=== PATIENT | male | born 1945 | race Caucasian/White ===

== ENCOUNTER 2016-11-03 16:42 | Inpatient (IN) | payer MEDICARE, BC ==
--- NOTE | 2016-11-03 17:18 | ED ---
General Adult HPI <Chris Crowell - Last Filed: 11/03/16 19:26> - General Source: patient, RN notes reviewed Mode of arrival: wheelchair Limitations: physical limitation <Jessica Clark - Last Filed: 11/03/16 19:40> - General Chief complaint: Skin/Abscess/Foreign Body Stated complaint: Legs Swollen Time Seen by Provider: 11/03/16 17:00 - History of Present Illness Initial comments: 71-year-old male presents with worsening wound to the right lower extremity. Patient states that he has diabetes and has had an increasing wound to the right lower extremity over the last 2 weeks. Patient states he has chronic numbness to bilateral feet from diabetic peripheral neuropathy. Patient denies any increasing numbness or weakness or tingling. Patient states he has a history of chronic swelling and multiple chronic wounds to the lower extremities. 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 Patient states he is able to ambulate but this is very painful so he crawls on his knees around his house. Patient states he has to crawl back up the stairs in his house and this is how the wound started. Patient states he is on anticoagulants for history of A. fib. Patient denies any recent fever, chills, shortness breath , chest pain, abdominal pain, nausea/vomiting/diarrhea, back pain, hematuria, headache, or visual changes, or any other complaints. (Jessica Clark) - Related Data Home Medications Medication Instructions Recorded Confirmed Furosemide [Lasix] 80 mg PO BID 05/06/14 11/03/16 Metolazone [Zaroxolyn] 2.5 mg PO DAILY 06/10/14 11/03/16 Lovastatin [Mevacor] 10 mg PO HS 05/29/15 11/03/16 Dabigatran Etexilate Mesylate 150 mg PO BID 11/03/16 11/03/16 [Pradaxa] Insulin Aspart [NovoLOG Flexpen] 20 units SQ AC-TID 11/03/16 11/03/16 Lisinopril [Zestril] 20 mg PO DAILY 11/03/16 11/03/16 Allergies Allergy/AdvReac Type Severity Reaction Status Date / Time amoxicillin trihydrate Allergy Itching Verified 11/03/16 17:48 [From Augmentin] potassium clavulanate Allergy Itching Verified 11/03/16 17:48 [From Augmentin] Review of Systems ROS Other: All systems not noted in ROS Statement are negative. <Chris Crowell - Last Filed: 11/03/16 19:26> ROS Other: All systems not noted in ROS Statement are negative. <Jessica Clark - Last Filed: 11/03/16 19:40> ROS Statement: Those systems with pertinent positive or pertinent negative responses have been documented in the HPI. Past Medical History Past Medical History: Atrial Fibrillation, Cancer, Heart Failure, Diabetes Mellitus, Hyperlipidemia, Hypertension, Prostate Disorder Additional Past Medical History / Comment(s): PROSTATE REMOVED- CANCER. WOUND RIGHT FOOT, neuropathy History of Any Multi-Drug Resistant Organisms: MRSA Date of last positivie culture/infection: 04/12/2014 MDRO Source:: Right Foot Past Surgical History: Prostate Surgery Additional Past Surgical History / Comment(s): Electrocardioversion for atrial fibrillation 3 years ago. DEBRIDEMENT RIGHT FOOT Past Anesthesia/Blood Transfusion Reactions: No Reported Reaction Past Psychological History: No Psychological Hx Reported Smoking Status: Former smoker Past Alcohol Use History: Rare Additional Past Alcohol Use History / Comment(s): Patient has history of smoking one and half packs of cigarettes per day for 15 years. He denies any medical marijuana, marijuana or street drug use. Patient states he drinks alcohol rarely. 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 He denies having any pets in the home. He is currently living alone and has moved from [place]. He denies any service Past Drug Use History: None Reported - Past Family History Mother Family Medical History: Coronary Artery Disease (CAD), GI Bleed Additional Family Medical History / Comment(s): AGE 84 FROM HEART PROBLEMS Father Family Medical History: CVA/TIA Additional Family Medical History / Comment(s): FROM MASSIVE STROKE AGE 71 <Jessica Clark - Last Filed: 11/03/16 19:40> General Exam <Chris Crowell - Last Filed: 11/03/16 19:26> Limitations: physical limitation <Jessica Clark - Last Filed: 11/03/16 19:40> - General Exam Comments Initial Comments: General: The patient is awake and alert, in no distress, and does not appear acutely ill. Eye: Pupils are equal, round and reactive to light, extra-ocular movements are intact. No nystagmus. There is normal conjunctiva bilaterally. No signs of icterus. Ears: TMs pink and pearly with intact cone of light bilaterally. Normal external ear canals Nose: Nasal turbinates pink and moist Mouth and throat: There are moist mucous membranes and no oral lesions. Neck: The neck is supple, there is no tenderness or JVD. Cardiovascular: There is a regular rate and rhythm. No murmur, rub or gallop is appreciated. Respiratory: Lungs are clear to auscultation, respirations are non-labored, breath sounds are equal. No wheezes, stridor, rales, or rhonchi Musculoskeletal: There is tenderness to bilateral lower extremities below the knees with increased erythema, swelling and chronic venous stasis dermatitis. Patient has loss of sensation to bilateral feet as far up as bilateral ankles. There is a wound to the medial aspect of the left lower extremity with eschar and weeping. The wound also has a foul odor. Normal ROM. Strength 5/5. Dorsalis pedis pulses are present and equal bilaterally via Doptone. Capillary refill is 3 seconds bilateral lower extremities. Neurological: A&O x 3. CN II-XII intact, There are no obvious motor or sensory deficits. Coordination appears grossly intact. Speech is normal. Skin: There is a wound to the medial aspect of the right lower extremity eschar , surrounding erythema, swelling and foul order. Skin is warm and dry. Psychiatric: Cooperative, appropriate mood & affect, normal judgment. (Jessica Clark) Medical Decision Making - Lab Data Result diagrams: 11/03/16 18:20 11/03/16 18:20 <Chris Crowell - Last Filed: 11/03/16 19:26> - Lab Data Result diagrams: 11/03/16 18:20 11/03/16 18:20 <Jessica Clark - Last Filed: 11/03/16 19:40> - Medical Decision Making Medical decision making I examined the patient has a large three-quarter circumferential infection to the right lower leg. Infected, contaminated with things from the floor as he crawls around. The case discussed with Dr. Watson will be admitted to his service and started on vancomycin. Dr. Crowell (Chris Crowell) This is a 71-year-old male who presents with chronic increasing wound to the right lower extremity 2 weeks. Patient states he has a history of MRSA and diabetic ulcers. On physical exam patient is well-appearing and afebrile the EC. There is tenderness to bilateral lower extremities below the knees with increased erythema, swelling and chronic venous stasis dermatitis. Patient has loss of sensation to bilateral feet as far up as bilateral ankles. There is a wound to the medial aspect of the left lower extremity with eschar and weeping. The wound also has a foul odor. Normal ROM. Strength 5/5. Dorsalis pedis pulses are present and equal bilaterally via Doptone. Capillary refill is 3 seconds bilateral lower extremities. Basic labs were drawn. A UA was done and came back within normal limits. Wound was cultured. Patient was started on IV vancomycin and IV fluids. I discussed this case with attending physician Dr. Crowell who spoke with Dr. Watson. Patient will be admitted as an inpatient to Dr. Watson for IV antibiotics. (Jessica Clark) - Lab Data Lab Results 11/03/16 11/03/16 11/03/16 Range/Units 18:20 18:20 18:20 WBC 5.2 (3.8-10.6) k/uL RBC 4.53 (4.30-5.90) m/uL Hgb 12.1 L (13.0-17.5) gm/dL Hct 37.6 L (39.0-53.0) % MCV 82.9 (80.0-100.0) fL MCH 26.7 (25.0-35.0) pg MCHC 32.2 (31.0-37.0) g/dL RDW 15.6 H (11.5-15.5) % Plt Count 287 (150-450) k/uL Neutrophils % 75 % Lymphocytes % 15 % Monocytes % 5 % Eosinophils % 3 % Basophils % 1 % Neutrophils # 3.9 (1.3-7.7) k/uL Lymphocytes # 0.8 L (1.0-4.8) k/uL Monocytes # 0.3 (0-1.0) k/uL Eosinophils # 0.1 (0-0.7) k/uL Basophils # 0.0 (0-0.2) k/uL Hypochromasia Moderate PT (9.0-12.0) sec INR (<1.1) APTT (22.0-30.0) sec Sodium 137 (137-145) mmol/L Potassium 5.0 (3.5-5.1) mmol/L Chloride 98 (98-107) mmol/L Carbon Dioxide 29 (22-30) mmol/L Anion Gap 10 mmol/L BUN 51 H (9-20) mg/dL Creatinine 1.50 H (0.66-1.25) mg/dL Est GFR (MDRD) Af Amer 56 (>60 ml/min/1.73 sqM) Est GFR (MDRD) Non-Af 46 (>60 ml/min/1.73 sqM) Glucose 202 H (74-99) mg/dL Plasma Lactic Acid Gary 1.0 (0.7-2.0) mmol/L Calcium 9.1 (8.4-10.2) mg/dL Total Bilirubin 0.8 (0.2-1.3) mg/dL AST 29 (17-59) U/L ALT 28 (21-72) U/L Alkaline Phosphatase 71 (38-126) U/L Total Protein 7.1 (6.3-8.2) g/dL Albumin 3.7 (3.5-5.0) g/dL Urine Color Urine Appearance (Clear) Urine pH (5.0-8.0) Ur Specific [place] (1.001-1.035) Urine Protein (Negative) Urine Glucose (UA) (Negative) Urine Ketones (Negative) Urine Blood (Negative) Urine Nitrite (Negative) Urine Bilirubin (Negative) Urine Urobilinogen (<2.0) mg/dL Ur Leukocyte Esterase (Negative) 11/03/16 11/03/16 Range/Units 18:20 18:20 WBC (3.8-10.6) k/uL RBC (4.30-5.90) m/uL Hgb (13.0-17.5) gm/dL Hct (39.0-53.0) % MCV (80.0-100.0) fL MCH (25.0-35.0) pg MCHC (31.0-37.0) g/dL RDW (11.5-15.5) % Plt Count (150-450) k/uL Neutrophils % % Lymphocytes % % Monocytes % % Eosinophils % % Basophils % % Neutrophils # (1.3-7.7) k/uL Lymphocytes # (1.0-4.8) k/uL Monocytes # (0-1.0) k/uL Eosinophils # (0-0.7) k/uL Basophils # (0-0.2) k/uL Hypochromasia PT 13.3 H (9.0-12.0) sec INR 1.4 (<1.1) APTT 35.5 H (22.0-30.0) sec Sodium (137-145) mmol/L Potassium (3.5-5.1) mmol/L Chloride (98-107) mmol/L Carbon Dioxide (22-30) mmol/L Anion Gap mmol/L BUN (9-20) mg/dL Creatinine (0.66-1.25) mg/dL Est GFR (MDRD) Af Amer (>60 ml/min/1.73 sqM) Est GFR (MDRD) Non-Af (>60 ml/min/1.73 sqM) Glucose (74-99) mg/dL Plasma Lactic Acid Gary (0.7-2.0) mmol/L Calcium (8.4-10.2) mg/dL Total Bilirubin (0.2-1.3) mg/dL AST (17-59) U/L ALT (21-72) U/L Alkaline Phosphatase (38-126) U/L Total Protein (6.3-8.2) g/dL Albumin (3.5-5.0) g/dL Urine Color Yellow Urine Appearance Clear (Clear) Urine pH 6.5 (5.0-8.0) Ur Specific [place] 1.011 (1.001-1.035) Urine Protein Negative (Negative) Urine Glucose (UA) Negative (Negative) Urine Ketones Negative (Negative) Urine Blood Negative (Negative) Urine Nitrite Negative (Negative) Urine Bilirubin Negative (Negative) Urine Urobilinogen <2.0 (<2.0) mg/dL Ur Leukocyte Esterase Negative (Negative) Disposition <Chris Crowell - Last Filed: 11/03/16 19:26> Decision Time: 19:37 <Jessica Clark - Last Filed: 11/03/16 19:40> Clinical Impression: Cellulitis Disposition: ADMITTED IP TO THIS [facility] Referrals: Danny Watson MD [Primary Care Provider] - 1-2 days
[2016-11-03] MEDS ORDERED: SODIUM CHLORIDE 0.9% 1,000 ML IV ONE (17:27)
[2016-11-03] MEDS ORDERED: IV VANCOMYCIN PER PHARMACY 1 EACH MISC MISCELLANE PRN (17:28)
[2016-11-03] MEDS ORDERED: VANCOMYCIN 1,000 MG in SODIUM CHLORIDE 0.9% 250 ML IVPB STA (17:28)
[2016-11-03] MEDS ORDERED: VANCOMYCIN 2,500 MG in SODIUM CHLORIDE 0.9% 500 ML IVPB STA (17:41)
[2016-11-03 18:42] LABS: Basophils % (A) 1 %; CH 25.2; CHCM 30.4; Eosinophils # (A) 0.1 k/uL (0-0.7); Eosinophils % (A) 3 %; HCT 37.6 % (39.0-53.0); HGB 12.1 gm/dL (13.0-17.5); Hypochromasia Moderate; Luc % (Auto) 2; Lymphocytes # (A) 0.8 k/uL (1.0-4.8); Lymphocytes % (A) 15 %; MCH 26.7 pg (25.0-35.0); MCHC 32.2 g/dL (31.0-37.0); MCV 82.9 fL (80.0-100.0); Monocytes # (A) 0.3 k/uL (0-1.0); Monocytes % (A) 5 %; Neutrophils # (A) 3.9 k/uL (1.3-7.7); Neutrophils % (A) 75 %; RBC 4.53 m/uL (4.30-5.90); RDW 15.6 % (11.5-15.5); WBC 5.2 k/uL (3.8-10.6); WBC (Perox) 5.12
[2016-11-03 18:43] LABS: Appearance,Urine Clear (Clear); Bilirubin,Urine Negative (Negative); Glucose,Urine (UA) Negative (Negative); Ketones,Urine Negative (Negative); Leukocyte Esterase,Urine Negative (Negative); Nitrite,Urine Negative (Negative); PH, Urine 6.5 (5.0-8.0); Protein,Urine Negative (Negative); Specific Gravity,Urine 1.011 (1.001-1.035); UA Billing (MACRO vs. MICRO) CHEM; Urobilinogen,Urine <2.0 mg/dL (<2.0)
[2016-11-03 18:51] LABS: INR 1.4 (<1.1); Partial Thromboplastin Time 35.5 sec (22.0-30.0); Prothrombin Time 13.3 sec (9.0-12.0)
[2016-11-03 19:01] LABS: Calcium 9.1 mg/dL (8.4-10.2); Total Bilirubin 0.8 mg/dL (0.2-1.3); Total Protein 7.1 g/dL (6.3-8.2)
[2016-11-03] MEDS ORDERED: SODIUM CHLORIDE 0.9% 500 ML IV ONE (19:03)
[2016-11-03] MEDS ORDERED: ACETAMINOPHEN TAB 325 MG TAB PO PRN (19:29)
[2016-11-03] MEDS ORDERED: NALOXONE 0.4 MG/ML 1 ML VIAL IV PRN (19:29)
[2016-11-03] MEDS ORDERED: HYDROmorphone 1 MG/ML 1 ML SYRINGE IV PRN (19:29)
[2016-11-03 20:05] LABS: Hemoglobin A1C 9.7 % (4.2-6.1)
[2016-11-03] MEDS: ATORVASTATIN 10 MG TAB PO SCH (22:01)
[2016-11-03] MEDS: DABIGATRAN 150 MG CAP PO SCH (22:01)
[2016-11-03] MEDS: FUROSEMIDE 80 MG TAB PO SCH (22:01)
[2016-11-03] MEDS: INSULIN LISPRO (humaLOG) 300 UNIT/3 ML VIAL SQ SCH (22:02)
[2016-11-03 22:09] LABS: Glucose,Whole Blood 208 mg/dL (75-99)
[2016-11-04] MEDS: HYDROcodone/APAP 5-325MG 1 EACH TAB PO PRN (00:42)
[2016-11-04 07:09] LABS: Basophils % (A) 1 %; CH 25.2; CHCM 29.8; Eosinophils # (A) 0.1 k/uL (0-0.7); Eosinophils % (A) 3 %; HGB 10.7 gm/dL (13.0-17.5); Hypochromasia Marked; Luc # (Auto) 0.12; Luc % (Auto) 3; Lymphocytes # (A) 0.9 k/uL (1.0-4.8); Lymphocytes % (A) 20 %; MCH 25.9 pg (25.0-35.0); MCHC 30.6 g/dL (31.0-37.0); MCV 84.8 fL (80.0-100.0); Mean Platelet Volume 6.9; Monocytes # (A) 0.3 k/uL (0-1.0); Monocytes % (A) 6 %; Neutrophils % (A) 68 %; RBC 4.13 m/uL (4.30-5.90); RDW 15.7 % (11.5-15.5); WBC 4.4 k/uL (3.8-10.6); WBC (Perox) 4.78
[2016-11-04 07:25] LABS: Glucose,Whole Blood 226 mg/dL (75-99)
[2016-11-04] MEDS: DABIGATRAN 150 MG CAP PO SCH ×2 (07:56→21:14)
[2016-11-04] MEDS: INSULIN LISPRO (humaLOG) 300 UNIT/3 ML VIAL SQ SCH ×6 (07:56→21:14)
[2016-11-04 08:31] LABS: ALT 26 U/L (21-72); AST 22 U/L (17-59); Alkaline Phosphatase 55 U/L (38-126); Anion Gap 10 mmol/L; Blood Urea Nitrogen 49 mg/dL (9-20); Calcium 8.4 mg/dL (8.4-10.2); Carbon Dioxide 26 mmol/L (22-30); Chloride 100 mmol/L (98-107); Glucose 209 mg/dL (74-99); Non-African American GFR(MDRD) 53 (>60 ml/min/1.73 sqM); Sodium 136 mmol/L (137-145); Total Bilirubin 0.7 mg/dL (0.2-1.3); Total Protein 6.4 g/dL (6.3-8.2)
[2016-11-04] MEDS: LISINOPRIL 20 MG TAB PO SCH (10:00)
[2016-11-04] MEDS: FUROSEMIDE 80 MG TAB PO SCH ×2 (10:00→16:38)
[2016-11-04] MEDS: METOLAZONE 2.5 MG TAB PO SCH (10:00)
[2016-11-04] MEDS: CIPROFLOXACIN HCL 250 MG TAB PO SCH ×2 (10:24→21:14)
[2016-11-04] MEDS: VANCOMYCIN 2,000 MG in SODIUM CHLORIDE 0.9% 500 ML IVPB SCH (10:25)
[2016-11-04 11:14] LABS: Glucose,Whole Blood 226 mg/dL (75-99)
[2016-11-04 11:46] VITALS: BMI 41.8
[2016-11-04] MEDS ORDERED: VANCOMYCIN 2,000 MG in SODIUM CHLORIDE 0.9% 500 ML IVPB SCH (12:00)
[2016-11-04 17:17] LABS: Glucose,Whole Blood 81 mg/dL (75-99)
[2016-11-04 20:08] LABS: Glucose,Whole Blood 176 mg/dL (75-99)
[2016-11-04] MEDS: ATORVASTATIN 10 MG TAB PO SCH (21:14)
--- NOTE | 2016-11-04 23:54 | P.CONS ---
History of Present Illness - Reason for Consult Consult date: 11/04/16 - Chief Complaint Lower extremity weakness worsening ulcers - History of Present Illness 71-year-old male who has obesity presents to Hospital with a many week history of increasing difficulties with his lower extremities. He's had increasing ulceration with increasing drainage especially to the right lower extremity. He developed extensive ulceration. He's had difficulty walking around his home and constantly has been crawling around on his hands and knees which is resulted in some injury to his right knee and some callus formation to his right hands from crawling around. He does not give good reasoning as to why he was doing this before seeking care. He relates it is now very serious about receiving care. We'll like to have some improvement. Relates that his shortness of breath is about at baseline. He is denying chest pains or pressures. This note was having great difficulties with ambulation because of pain and difficulty and was crawling around. This may be part of how the wound worsened. States and present for the last several weeks. Review of Systems Constitutional: Denies chills, Denies fever, Denies sweats Eyes: denies blurred vision, denies pain Ears, nose, mouth and throat: Denies dental pain, Denies dysphagia, Denies headache, Denies mouth pain, Denies sore throat Cardiovascular: Reports dyspnea on exertion, Reports shortness of breath, Denies chest pain, Denies syncope Respiratory: Denies cough Gastrointestinal: Denies abdominal pain, Denies diarrhea, Denies nausea, Denies vomiting Genitourinary: Denies dysuria Musculoskeletal: Significant lower extremity pain Integumentary: Reports wounds to the right leg greater than the left with significant lower extremity edema and discomfort Neurological: Chronic bilateral lower extremity neuropathy Denies weakness Psychiatric: Denies anxiety, Denies depression Endocrine: Positive fatigue with weight gain poor control of his diabetes Past Medical History Past Medical History: Atrial Fibrillation, Cancer, Heart Failure, Diabetes Mellitus, Hyperlipidemia, Hypertension, Prostate Disorder Additional Past Medical History / Comment(s): PROSTATE REMOVED- CANCER. WOUND RIGHT FOOT, neuropathy History of Any Multi-Drug Resistant Organisms: MRSA Year Discovered:: 04/12/2014 MDRO Source:: Right Foot Past Surgical History: Prostate Surgery Additional Past Surgical History / Comment(s): Electrocardioversion for atrial fibrillation 3 years ago. DEBRIDEMENT RIGHT FOOT Past Anesthesia/Blood Transfusion Reactions: No Reported Reaction Past Psychological History: No Psychological Hx Reported Additional Psychological History / Comment(s): Patient has history of smoking one and half packs of cigarettes per day for 15 years. He denies any medical marijuana, marijuana or street drug use. Patient states he drinks alcohol rarely. 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 He denies having any pets in the home. He is currently living alone and has moved from [place]. He denies any service Smoking Status: Former smoker Past Alcohol Use History: Rare Additional Past Alcohol Use History / Comment(s): Patient has history of smoking one and half packs of cigarettes per day for 15 years. He denies any medical marijuana, marijuana or street drug use. Patient states he drinks alcohol rarely. 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 He denies having any pets in the home. He is currently living alone and has moved from [place]. He denies any service Past Drug Use History: None Reported - Past Family History Mother Family Medical History: Coronary Artery Disease (CAD), GI Bleed Additional Family Medical History / Comment(s): AGE 84 FROM HEART PROBLEMS Father Family Medical History: CVA/TIA Additional Family Medical History / Comment(s): FROM MASSIVE STROKE AGE 71 Medications and Allergies Home Medications and Allergies Comment(s): Current Medications Acetaminophen (Tylenol Tab) 650 mg PO Q6HR PRN PRN Reason: Mild Pain or Fever > 100.5 Hydrocodone Bitart/Acetaminophen ([employer] 5-325) 1 each PO Q4HR PRN PRN Reason: Moderate Pain Last Admin: 11/04/16 00:42 Dose: 1 each Atorvastatin Calcium (Lipitor) 10 mg PO HS [facility] Last Admin: 11/04/16 21:14 Dose: 10 mg Ciprofloxacin (Cipro) 750 mg PO BID [facility] Last Admin: 11/04/16 21:14 Dose: 750 mg Dabigatran (Pradaxa) 150 mg PO BID [facility] Last Admin: 11/04/16 21:14 Dose: 150 mg Furosemide (Lasix) 80 mg PO 0900,1600 [facility] Last Admin: 11/04/16 16:38 Dose: Not Given Vancomycin HCl 2,000 mg/ (Sodium Chloride) 500 mls @ 167 mls/hr IVPB Q16H [facility] Last Admin: 11/04/16 10:25 Dose: 167 mls/hr Insulin Human Lispro (Humalog) 0 unit SQ ACHS [facility] PRN Reason: Protocol Last Admin: 11/04/16 21:14 Dose: 3 unit Insulin Human Lispro (Humalog) 20 unit SQ AC-TID [facility] Last Admin: 11/04/16 17:21 Dose: Not Given Lisinopril (Zestril) 20 mg PO DAILY [facility] Last Admin: 11/04/16 10:00 Dose: Not Given Metolazone (Zaroxolyn) 2.5 mg PO DAILY [facility] Last Admin: 11/04/16 10:00 Dose: Not Given Naloxone HCl (Narcan) 0.2 mg IV Q2M PRN PRN Reason: Opioid Reversal Silver Sulfadiazine (Silvadene Cream) 1 applic TOPICAL BID [facility] Home Medications Medication Instructions Recorded Confirmed Type Furosemide [Lasix] 80 mg PO BID 05/06/14 11/03/16 History Metolazone [Zaroxolyn] 2.5 mg PO DAILY 06/10/14 11/03/16 History Lovastatin [Mevacor] 10 mg PO HS 05/29/15 11/03/16 History Dabigatran Etexilate Mesylate 150 mg PO BID 11/03/16 11/03/16 History [Pradaxa] Insulin Aspart [NovoLOG Flexpen] 20 units SQ AC-TID 11/03/16 11/03/16 History Lisinopril [Zestril] 20 mg PO DAILY 11/03/16 11/03/16 History Allergies Allergy/AdvReac Type Severity Reaction Status Date / Time amoxicillin trihydrate Allergy Itching Verified 11/03/16 17:48 [From Augmentin] potassium clavulanate Allergy Itching Verified 11/03/16 17:48 [From Augmentin] Physical Exam Vitals: Vital Signs Temp Pulse Pulse Resp BP Pulse Ox 11/04/16 16:21 98.4 F 94 16 99/66 95 11/04/16 16:00 94 105 H 16 11/04/16 08:00 86 105 H 16 11/04/16 07:00 97.6 F 86 16 96/57 98 11/04/16 02:07 118/66 11/04/16 01:21 97.5 F L 105 H 20 96/49 93 L Intake and Output 11/04/16 11/04/16 11/05/16 14:59 22:59 06:59 Intake Total 740 300 Output Total 700 300 Balance 40 0 Intake: IV 500 Sodium Chloride 0.9% 1, 500 000 ml @ 999 mls/hr IV . Q1H1M ONE Rx#:[id number] Oral 240 300 Output: Urine 700 300 Other: Voiding Method Urinal Urinal # Voids 4 3 Weight 136.078 kg Patient Weight 11/05/16 06:59 Weight 136.078 kg 71-year-old male who suffers from superobesity and difficulties recently with his ambulation and ulceration especially to the right leg with drainage HEENT: Anicteric conjunctiva are pink and moist nasal mucosa grossly intact without significant lesions, there is no thrush. Poor dentition Neck: The neck is supple without significant lymphadenopathy or thyromegaly. Lungs: Symmetrical air entry expiratory wheezes few basilar crackles no bronchial sounds Heart: Irregular with a loud S4 There is no significant murmur click or rub, PMI was nondisplaced. Abdomen: Obese, Positive bowel sounds soft and nontender without palpable masses or organomegaly. There was no guarding or rebound. Extremities: The upper extremities reveal no acute lesions. IV site is intact. His extensive bilateral lower extremity edema. Extensive ulceration is seen on the right pretibial area. Approximately 10 x 10 x 0.2cm. Draining a large amount of serous material. Has a smaller lesion in the left pretibial area about 2 x 2 with a depth of 1 cm. There is extensive erythema and tenderness over these areas right greater than left. From crawling he has evidence of significant discoloration callus formation to his right knee more than the left. As well as on the knuckles of the right hand. These areas are not grossly infected at this time. Neuro: Awake alert oriented to person place and time. There are no acute new gross focal sensory motor deficits. Results CBC & Chem 7: 11/04/16 06:49 11/04/16 06:49 Labs: Abnormal Lab Results - Last 24 Hours (Table) 11/04/16 11/04/16 11/04/16 Range/Units 06:49 06:49 07:12 RBC 4.13 L (4.30-5.90) m/uL Hgb 10.7 L (13.0-17.5) gm/dL Hct 35.0 L (39.0-53.0) % MCHC 30.6 L (31.0-37.0) g/dL RDW 15.7 H (11.5-15.5) % Lymphocytes # 0.9 L (1.0-4.8) k/uL Sodium 136 L (137-145) mmol/L BUN 49 H (9-20) mg/dL Creatinine 1.34 H (0.66-1.25) mg/dL Glucose 209 H (74-99) mg/dL POC Glucose (mg/dL) 226 H (75-99) mg/dL Albumin 3.2 L (3.5-5.0) g/dL 11/04/16 11/04/16 Range/Units 11:11 20:07 RBC (4.30-5.90) m/uL Hgb (13.0-17.5) gm/dL Hct (39.0-53.0) % MCHC (31.0-37.0) g/dL RDW (11.5-15.5) % Lymphocytes # (1.0-4.8) k/uL Sodium (137-145) mmol/L BUN (9-20) mg/dL Creatinine (0.66-1.25) mg/dL Glucose (74-99) mg/dL POC Glucose (mg/dL) 226 H 176 H (75-99) mg/dL Albumin (3.5-5.0) g/dL Laboratory Results WBC 4.4 k/uL (3.8-10.6) 11/04/16 06:49 RBC 4.13 m/uL (4.30-5.90) L 11/04/16 06:49 Hgb 10.7 gm/dL (13.0-17.5) L 11/04/16 06:49 Hct 35.0 % (39.0-53.0) L 11/04/16 06:49 MCV 84.8 fL (80.0-100.0) 11/04/16 06:49 MCH 25.9 pg (25.0-35.0) 11/04/16 06:49 MCHC 30.6 g/dL (31.0-37.0) L 11/04/16 06:49 RDW 15.7 % (11.5-15.5) H 11/04/16 06:49 Plt Count 246 k/uL (150-450) 11/04/16 06:49 Neutrophils % 68 % 11/04/16 06:49 Lymphocytes % 20 % 11/04/16 06:49 Monocytes % 6 % 11/04/16 06:49 Eosinophils % 3 % 11/04/16 06:49 Basophils % 1 % 11/04/16 06:49 Neutrophils # 3.0 k/uL (1.3-7.7) 11/04/16 06:49 Lymphocytes # 0.9 k/uL (1.0-4.8) L 11/04/16 06:49 Monocytes # 0.3 k/uL (0-1.0) 11/04/16 06:49 Eosinophils # 0.1 k/uL (0-0.7) 11/04/16 06:49 Basophils # 0.0 k/uL (0-0.2) 11/04/16 06:49 Hypochromasia Marked 11/04/16 06:49 PT 13.3 sec (9.0-12.0) H 11/03/16 18:20 INR 1.4 (<1.1) 11/03/16 18:20 APTT 35.5 sec (22.0-30.0) H 11/03/16 18:20 Sodium 136 mmol/L (137-145) L 11/04/16 06:49 Potassium 5.0 mmol/L (3.5-5.1) 11/04/16 06:49 Chloride 100 mmol/L (98-107) 11/04/16 06:49 Carbon Dioxide 26 mmol/L (22-30) 11/04/16 06:49 Anion Gap 10 mmol/L 11/04/16 06:49 BUN 49 mg/dL (9-20) H 11/04/16 06:49 Creatinine 1.34 mg/dL (0.66-1.25) H 11/04/16 06:49 Est GFR (MDRD) Af Amer >60 (>60 ml/min/1.73 sqM) 11/04/16 06:49 Est GFR (MDRD) Non-Af 53 (>60 ml/min/1.73 sqM) 11/04/16 06:49 Glucose 209 mg/dL (74-99) H 11/04/16 06:49 POC Glucose (mg/dL) 176 mg/dL (75-99) H 11/04/16 20:07 POC Glu Self Pay Specialist ID Karen Castellano 11/04/16 20:[address] Glu mg/dL 232 mg/dL 11/03/16 18:20 Hemoglobin A1c 9.7 % (4.2-6.1) H 11/03/16 18:20 Plasma Lactic Acid Gary 1.0 mmol/L (0.7-2.0) 11/03/16 18:20 Calcium 8.4 mg/dL (8.4-10.2) 11/04/16 06:49 Total Bilirubin 0.7 mg/dL (0.2-1.3) 11/04/16 06:49 AST 22 U/L (17-59) 11/04/16 06:49 ALT 26 U/L (21-72) 11/04/16 06:49 Alkaline Phosphatase 55 U/L (38-126) 11/04/16 06:49 Total Protein 6.4 g/dL (6.3-8.2) 11/04/16 06:49 Albumin 3.2 g/dL (3.5-5.0) L 11/04/16 06:49 Urine Color Yellow 11/03/16 18:20 Urine Appearance Clear (Clear) 11/03/16 18:20 Urine pH 6.5 (5.0-8.0) 11/03/16 18:20 Ur Specific [place] 1.011 (1.001-1.035) 11/03/16 18:20 Urine Protein Negative (Negative) 11/03/16 18:20 Urine Glucose (UA) Negative (Negative) 11/03/16 18:20 Urine Ketones Negative (Negative) 11/03/16 18:20 Urine Blood Negative (Negative) 11/03/16 18:20 Urine Nitrite Negative (Negative) 11/03/16 18:20 Urine Bilirubin Negative (Negative) 11/03/16 18:20 Urine Urobilinogen <2.0 mg/dL (<2.0) 11/03/16 18:20 Ur Leukocyte Esterase Negative (Negative) 11/03/16 18:20 Microbiology 11/03/16 18:20 Blood Blood Culture - Preliminary No Growth after 24 hours 11/03/16 18:20 Leg - Right Gram Stain - Preliminary 11/03/16 18:20 Leg - Right Wound Culture - Preliminary Gram Neg Bacilli 11/03/16 18:20 Urine,Voided Urine Culture - Final Comments: Arterial studies and 2015 were normal Assessment and Plan (1) Bilateral lower leg cellulitis Narrative/Plan: 71-year-old male presents to Hospital with evidence of worsening lower extremity edema and ulcerations over the last few weeks. He had to crawl around his legs are doing so poorly. His extensive edema, erythema as well as open ulcerations of the bilateral lower extremities. There is copious drainage. Will utilize adult briefs wrapped around the leg and some Benny wrap to keep it in place until the drainage improves. Cultures are process. With his ALLERGY to amoxicillin will utilize meropenem for now until we have further data. He does not have recent history of MRSA. Local wound care with some Silvadene and wraps will be utilized. Elevation of legs at rest. Likely will need a course of IV antibiotic therapy at discharge, lasting needed to go to extended care for rehab and antibiotic therapy. Baseline laboratories Enhance glucose control Status: Acute (2) Diabetic ulcer of lower leg associated with diabetes mellitus due to underlying condition, with fat layer exposed Status: Acute (3) Poorly controlled type 2 diabetes mellitus with complication Status: Acute
[2016-11-05] MEDS: MEROPENEM 1 GM in SODIUM CHLORIDE 0.9% 100 ML IVPB SCH ×3 (00:24→15:18)
[2016-11-05] MEDS: VANCOMYCIN 2,000 MG in SODIUM CHLORIDE 0.9% 500 ML IVPB SCH ×2 (02:59→18:03)
[2016-11-05] MEDS: HYDROcodone/APAP 5-325MG 1 EACH TAB PO PRN ×2 (03:04→09:01)
[2016-11-05 07:22] LABS: Glucose,Whole Blood 138 mg/dL (75-99)
[2016-11-05 07:45] LABS: CH 25.4; CHCM 29.9; HCT 35.2 % (39.0-53.0); HDW 2.81; HGB 11.2 gm/dL (13.0-17.5); Hypochromasia Marked; MCHC 31.8 g/dL (31.0-37.0); MCV 84.8 fL (80.0-100.0); Mean Platelet Volume 7.1; RBC 4.15 m/uL (4.30-5.90); RDW 15.5 % (11.5-15.5); WBC 4.2 k/uL (3.8-10.6)
[2016-11-05] MEDS: DABIGATRAN 150 MG CAP PO SCH ×2 (08:02→22:11)
[2016-11-05] MEDS: INSULIN LISPRO (humaLOG) 300 UNIT/3 ML VIAL SQ SCH ×7 (08:02→22:14)
[2016-11-05] MEDS: FUROSEMIDE 80 MG TAB PO SCH ×2 (08:04→15:18)
[2016-11-05] MEDS: LISINOPRIL 20 MG TAB PO SCH (08:04)
[2016-11-05] MEDS: METOLAZONE 2.5 MG TAB PO SCH (08:05)
[2016-11-05 08:16] LABS: Calcium 8.6 mg/dL (8.4-10.2); Potassium 4.7 mmol/L (3.5-5.1)
[2016-11-05] MEDS: SILVER sulfADIAZINE Cream 400 GM 1 APPLIC APPLIC TOPICAL SCH ×2 (09:00→22:14)
[2016-11-05 10:20] LABS: C Reactive Protein 24.3 mg/L (<10.0)
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
--- NOTE | 2016-11-05 11:32 | HP ---
Addendum/continuation of H&P after being disconnected. DATE OF ADMISSION: 11/03/2016 PAST MEDICAL HISTORY: Also significant for venostasis ulcerations of the lower leg. PAST SURGICAL HISTORY: Significant for debridement and has had some previous prostate surgery, probably TURP. PERSONAL HISTORY: Nonsmoker at present, used to smoke in the past. Alcohol none. Patient used to smoke 1 to 1-1/2 packs per day for over 15 years. No other drug use. SOCIAL HISTORY: The patient is , lives alone. FAMILY MEDICAL HISTORY: Mother had a history of coronary artery disease and ASHD. She also had a history of GI bleeding. Father at age 71, he had history of CVA. The patient has 2 sons. REVIEW OF SYSTEMS: NEURO: Denies any headaches, dizziness. No double vision, blurred vision. No symptoms of TIA, syncope, seizures. PSYCH: No anxiety. Denies depression. CARDIAC: Denies chest pain, angina, palpitations. RESPIRATORY: Mild chronic shortness of breath and chronic cough. No hemoptysis. GI: No nausea or vomiting. Appetite good. No abdominal pain. Does have some loose stools off and on. Generally has urgency to defecate. : No symptoms of dysuria, hematuria. Does have some frequency. EXTREMITIES: Present complains of swelling and ulcerations right leg. Denies any fever or chills. Some pain associated with ulcerations. CONSTITUTIONAL: No fever or chills. HEMATOLOGIC: No anemia or bleeding disorder. ENDOCRINE: History of diabetes mellitus. SKIN: Ulcers as mentioned above. PHYSICAL EXAMINATION: A 71-year-old gentleman who appears his stated age. He appears poorly kempt. Vital signs reveal temperature 98.1, pulse 88, respirations 20, blood pressure 132/78, pulse ox 99% on room air at the time of admission. At the time of evaluation temperature is 97.6, pulse 86, respirations 16, blood pressure 96/57, pulse ox 98% on room air. HEENT: Normocephalic. Pupils reactive. Nostrils clear. Oral cavity moist. NECK: Difficult to assess, patient has a wilhelm and short neck. No thyromegaly palpable. No obvious carotid bruits. Difficult to assess for JVD. CHEST EXAMINATION: Generalized decreased air flow. Percussion noted bilateral symmetrical. CARDIAC: Distant heart sounds. S1, S2 with no gallops. Rhythm appears to be irregularly irregular. ABDOMEN: Distended, protuberant, nontender. Bowel sounds are active. EXTREMITIES: Reveal 2 to 3+ edema, some places pitting, other places chronic. The patient has a large area of denuded skin and some scabbed skin in the right lower leg about 2 to 3 inches above the ankle. The patient has some necrotic appearing tissue and some exposure to the fatty tissue. There is significant amount of drainage with some foul odor. EXTREMITIES: Feet, pedal pulses are palpable but diminished. The patient has edema of the feet bilateral. No ulcerations on the bottom of the feet. The patient does move both upper and lower extremities well. He does have some scabbed areas at both knees where he has been crawling. NEUROLOGIC: Awake, alert, oriented x3, with well-coordinated movements in both upper extremities. LABORATORY ASSESSMENT: White count 5200. Hemoglobin 12.1. INR 1.4. Electrolytes normal. BUN 51, creatinine 1.5. Glucose was 202. Hemoglobin A1c 9.7. Urinalysis unremarkable. ASSESSMENT: 1. Cellulitis right lower leg. 2. Venostasis ulceration. 3. Diabetes mellitus. 4. Generalized weakness. 5. Chronic kidney disease stage III. 6. Chronic atrial fibrillation. 7. Poor compliance to medications and diet. 8. Obesity. 9. Obstructive sleep apnea. 10. Chronic obstructive pulmonary disease. PLAN: Will start local wound application of Silvadene cream. The patient has been placed on vancomycin with previous history of MRSA and also added Cipro. Antibiotics to be continued until ID sees the patient and see what they recommend. Patient will be continued with diuretics. Patient's general condition remains guarded. Prognosis is guarded. Patient is probably going to require continuous wound care and may require to be placed in rehab. [facility], patient's prognosis remains poor due to his poor compliance to medical care. Patient's condition discussed with the patient.
[2016-11-05 12:10] LABS: Glucose,Whole Blood 79 mg/dL (75-99)
[2016-11-05] MEDS ORDERED: VANCOMYCIN TROUGH DUE 1 EACH MISC MISCELLANE ONE (17:00)
[2016-11-05 17:16] LABS: Glucose,Whole Blood 122 mg/dL (75-99)
[2016-11-05 20:05] LABS: Glucose,Whole Blood 117 mg/dL (75-99)
[2016-11-05] MEDS: ATORVASTATIN 10 MG TAB PO SCH (22:11)
--- NOTE | 2016-11-05 22:35 | P.PN ---
Subjective Principal diagnosis: Diabetic ulcers and cellulitis to both legs 71-year-old male who has obesity presents to Hospital with a many week history of increasing difficulties with his lower extremities. He's had increasing ulceration with increasing drainage especially to the right lower extremity. He developed extensive ulceration. He's had difficulty walking around his home and constantly has been crawling around on his hands and knees which is resulted in some injury to his right knee and some callus formation to his right hands from crawling around. He does not give good reasoning as to why he was doing this before seeking care. He relates it is now very serious about receiving care. We'll like to have some improvement. Relates that his shortness of breath is about at baseline. He is denying chest pains or pressures. This note was having great difficulties with ambulation because of pain and difficulty and was crawling around. This may be part of how the wound worsened. States and present for the last several weeks. Feeling just slightly better today Objective - Vital Signs Vital signs: Vital Signs Temp 98.7 F 11/05/16 17:07 Pulse 94 11/05/16 17:07 Resp 15 11/05/16 17:07 BP 99/54 11/05/16 17:07 Pulse Ox 95 11/05/16 17:07 Intake & Output 11/05/16 11/05/16 11/06/16 06:59 18:59 06:59 Intake Total 900 580 Output Total 1300 Balance 900 -720 Weight 136.078 kg Intake: Intake, IV Titration 600 100 Amount Meropenem 1 gm In Sodium 100 Chloride 0.9% 100 ml @ 100 mls/hr IVPB Q12HR [facility] Rx#:[id number] Meropenem 1 gm In Sodium 100 Chloride 0.9% 100 ml @ 100 mls/hr IVPB Q8HR [facility] Rx#:[id number] Vancomycin 2,000 mg In 500 Sodium Chloride 0.9% 500 ml @ 167 mls/hr IVPB Q16H [facility] Rx#:[id number] Oral 300 480 Output: Urine 1300 Other: Voiding Method Urinal Urinal # Voids 3 1 # Bowel Movements 1 - Exam 71-year-old male who suffers from superobesity and difficulties recently with his ambulation and ulceration especially to the right leg with drainage HEENT: Anicteric conjunctiva are pink and moist nasal mucosa grossly intact without significant lesions, there is no thrush. Poor dentition Neck: The neck is supple without significant lymphadenopathy or thyromegaly. Lungs: Symmetrical air entry expiratory wheezes few basilar crackles no bronchial sounds Heart: Irregular with a loud S4 There is no significant murmur click or rub, PMI was nondisplaced. Abdomen: Obese, Positive bowel sounds soft and nontender without palpable masses or organomegaly. There was no guarding or rebound. Extremities: The upper extremities reveal no acute lesions. IV site is intact. His extensive bilateral lower extremity edema. Extensive ulceration is seen on the right pretibial area. Approximately 10 x 10 x 0.2cm. Draining a large amount of serous material. Has a smaller lesion in the left pretibial area about 2 x 2 with a depth of 1 cm. There is extensive erythema and tenderness over these areas right greater than left. From crawling he has evidence of significant discoloration callus formation to his right knee more than the left. As well as on the knuckles of the right hand. These areas are not grossly infected at this time. Neuro: Awake alert oriented to person place and time. There are no acute new gross focal sensory motor deficits. - Labs CBC & Chem 7: 11/05/16 07:19 11/05/16 07:19 Labs: Abnormal Lab Results - Last 24 Hours (Table) 11/05/16 11/05/16 11/05/16 Range/Units 07:18 07:19 07:19 RBC 4.15 L (4.30-5.90) m/uL Hgb 11.2 L (13.0-17.5) gm/dL Hct 35.2 L (39.0-53.0) % ESR (0-15) mm/hr BUN 45 H (9-20) mg/dL Creatinine 1.44 H (0.66-1.25) mg/dL Glucose 140 H (74-99) mg/dL POC Glucose (mg/dL) 138 H (75-99) mg/dL C-Reactive Protein 24.3 H (<10.0) mg/L Prealbumin 14 L (18-36) mg/dL 11/05/16 11/05/16 11/05/16 Range/Units 07:19 17:01 20:00 RBC (4.30-5.90) m/uL Hgb (13.0-17.5) gm/dL Hct (39.0-53.0) % ESR 25 H (0-15) mm/hr BUN (9-20) mg/dL Creatinine (0.66-1.25) mg/dL Glucose (74-99) mg/dL POC Glucose (mg/dL) 122 H 117 H (75-99) mg/dL C-Reactive Protein (<10.0) mg/L Prealbumin (18-36) mg/dL Laboratory Results WBC 4.2 k/uL (3.8-10.6) 11/05/16 07:19 RBC 4.15 m/uL (4.30-5.90) L 11/05/16 07:19 Hgb 11.2 gm/dL (13.0-17.5) L 11/05/16 07:19 Hct 35.2 % (39.0-53.0) L 11/05/16 07:19 MCV 84.8 fL (80.0-100.0) 11/05/16 07:19 MCH 27.0 pg (25.0-35.0) 11/05/16 07:19 MCHC 31.8 g/dL (31.0-37.0) 11/05/16 07:19 RDW 15.5 % (11.5-15.5) 11/05/16 07:19 Plt Count 218 k/uL (150-450) 11/05/16 07:19 Neutrophils % 68 % 11/04/16 06:49 Lymphocytes % 20 % 11/04/16 06:49 Monocytes % 6 % 11/04/16 06:49 Eosinophils % 3 % 11/04/16 06:49 Basophils % 1 % 11/04/16 06:49 Neutrophils # 3.0 k/uL (1.3-7.7) 11/04/16 06:49 Lymphocytes # 0.9 k/uL (1.0-4.8) L 11/04/16 06:49 Monocytes # 0.3 k/uL (0-1.0) 11/04/16 06:49 Eosinophils # 0.1 k/uL (0-0.7) 11/04/16 06:49 Basophils # 0.0 k/uL (0-0.2) 11/04/16 06:49 Hypochromasia Marked 11/05/16 07:19 ESR 25 mm/hr (0-15) H 11/05/16 07:19 PT 13.3 sec (9.0-12.0) H 11/03/16 18:20 INR 1.4 (<1.1) 11/03/16 18:20 APTT 35.5 sec (22.0-30.0) H 11/03/16 18:20 Sodium 137 mmol/L (137-145) 11/05/16 07:19 Potassium 4.7 mmol/L (3.5-5.1) 11/05/16 07:19 Chloride 101 mmol/L (98-107) 11/05/16 07:19 Carbon Dioxide 27 mmol/L (22-30) 11/05/16 07:19 Anion Gap 9 mmol/L 11/05/16 07:19 BUN 45 mg/dL (9-20) H 11/05/16 07:19 Creatinine 1.44 mg/dL (0.66-1.25) H 11/05/16 07:19 Est GFR (MDRD) Af Amer 59 (>60 ml/min/1.73 sqM) 11/05/16 07:19 Est GFR (MDRD) Non-Af 49 (>60 ml/min/1.73 sqM) 11/05/16 07:19 Glucose 140 mg/dL (74-99) H 11/05/16 07:19 POC Glucose (mg/dL) 117 mg/dL (75-99) H 11/05/16 20:00 POC Glu [employer] KHANH Karen Castellano 11/05/16 20:[address] Glu mg/dL 232 mg/dL 11/03/16 18:20 Hemoglobin A1c 9.7 % (4.2-6.1) H 11/03/16 18:20 Plasma Lactic Acid Gary 1.0 mmol/L (0.7-2.0) 11/03/16 18:20 Calcium 8.6 mg/dL (8.4-10.2) 11/05/16 07:19 Total Bilirubin 0.7 mg/dL (0.2-1.3) 11/04/16 06:49 AST 22 U/L (17-59) 11/04/16 06:49 ALT 26 U/L (21-72) 11/04/16 06:49 Alkaline Phosphatase 55 U/L (38-126) 11/04/16 06:49 C-Reactive Protein 24.3 mg/L (<10.0) H 11/05/16 07:19 Total Protein 6.4 g/dL (6.3-8.2) 11/04/16 06:49 Albumin 3.2 g/dL (3.5-5.0) L 11/04/16 06:49 Prealbumin 14 mg/dL (18-36) L 11/05/16 07:19 Urine Color Yellow 11/03/16 18:20 Urine Appearance Clear (Clear) 11/03/16 18:20 Urine pH 6.5 (5.0-8.0) 11/03/16 18:20 Ur Specific Hunker 1.011 (1.001-1.035) 11/03/16 18:20 Urine Protein Negative (Negative) 11/03/16 18:20 Urine Glucose (UA) Negative (Negative) 11/03/16 18:20 Urine Ketones Negative (Negative) 11/03/16 18:20 Urine Blood Negative (Negative) 11/03/16 18:20 Urine Nitrite Negative (Negative) 11/03/16 18:20 Urine Bilirubin Negative (Negative) 11/03/16 18:20 Urine Urobilinogen <2.0 mg/dL (<2.0) 11/03/16 18:20 Ur Leukocyte Esterase Negative (Negative) 11/03/16 18:20 Vancomycin Trough 25.3 ug/mL 11/05/16 17:37 Microbiology 11/03/16 18:20 Blood Blood Culture Gram Stain - Preliminary 11/03/16 18:20 Blood Blood Culture - Preliminary 11/03/16 18:20 Leg - Right Gram Stain - Preliminary 11/03/16 18:20 Leg - Right Wound Culture - Preliminary Gram Neg Bacilli 11/03/16 18:20 Urine,Voided Urine Culture - Final Assessment and Plan (1) Bilateral lower leg cellulitis Narrative/Plan: 71-year-old male presents to Hospital with evidence of worsening lower extremity edema and ulcerations over the last few weeks. He had to crawl around his legs are doing so poorly. His extensive edema, erythema as well as open ulcerations of the bilateral lower extremities. There is copious drainage. Will utilize adult briefs wrapped around the leg and some Benny wrap to keep it in place until the drainage improves. Cultures are process. With his ALLERGY to amoxicillin will utilize meropenem for now until we have further data. Continue Vancomycin while blood culture is in process Local wound care with some Silvadene and wraps will be utilized. Elevation of legs at rest. Likely will need a course of IV antibiotic therapy at discharge, lasting needed to go to extended care for rehab and antibiotic therapy. Baseline laboratories Enhance glucose control Status: Acute (2) Diabetic ulcer of lower leg associated with diabetes mellitus due to underlying condition, with fat layer exposed Status: Acute (3) Poorly controlled type 2 diabetes mellitus with complication Status: Acute
--- NOTE | 2016-11-05 22:57 | PN ---
CHIEF COMPLAINT: Re-evaluation. HISTORY OF PRESENT ILLNESS: A 71-year-old was admitted to the hospital yesterday with a profusely weeping right lower leg with evidence of cellulitis and denudement of the dermis of the skin. The patient had significant ulcerations. There is also some scabbed area. He has chronic venostasis. The patient has significant pulmonary hypertension, history of obstructive sleep apnea, COPD, diabetes mellitus and hypertension. The patient has been seen by Infectious Disease for the cellulitis and ulcerations of the right lower leg. Dr. Arguello has prescribed wound care as well as antibiotics, which include meropenem and vancomycin. The patient is actually feeling better today. He did have blood sugar in the 70s with some hypoglycemic symptoms. The patient's insulin dosage will be dropped down to 10 units before meals, as he is on a restricted diet now. The patient's condition is reviewed with the patient. REVIEW OF SYSTEMS: NEURO: Denies any headaches, dizziness. PSYCH: No anxiety. CARDIAC: No chest pain, angina, palpitation. RESPIRATORY: Denies shortness of breath. Does have some cough. No hemoptysis. GI: No nausea, vomiting, abdominal pain, diarrhea. No bowel movement. : No symptoms of dysuria, hematuria. EXTREMITIES: Edema and drainage from the right lower leg. CONSTITUTIONAL: No fever or chills. PHYSICAL EXAMINATION: Pleasant 71-year-old who appears stated age. Vital signs reveal temperature is 98, pulse of 92, respirations 16, blood pressure 105/63, pulse ox 95% on room air. HEENT: Normocephalic. NECK: Difficult to assess for JVD. Chest is clear to auscultation with generalized decreased air flow. CARDIAC: Distant heart sounds. S1, S2 with no gallops. Irregular rhythm. Systolic murmur 2/6 left sternal border. ABDOMEN: Protuberant, soft. Bowel sounds are active. Extremities reveal 1 to 2+ edema. Right lower leg wound not inspected today. The patient has Silvadene dressings on it. Does have pedal pulses palpable. Neurologically awake, alert, oriented with well-coordinated movements. LABORATORY ASSESSMENT: Hemoglobin of 11.2, white count 4.2, platelets 218. BUN 45, creatinine 1.44. Electrolytes were normal. C-reactive protein 25, ( ) 24.3 and pre-albumin was 14. ASSESSMENT: 1. Cellulitis, right lower leg. 2. Venostasis ulcerations, right lower leg. 3. Chronic kidney disease stage 3. 4. Chronic obstructive pulmonary disease. 5. Pulmonary hypertension. 6. Chronic atrial fibrillation. 7. Anticoagulated state. 8. Hypertension. 9. Diabetes mellitus. PLAN: The patient is continued on present antibiotics. I have reduced insulin dosing. The patient has received previous instructions for diet and diabetes mellitus; however, he continues to be doing poorly regarding that. The patient's blood sugars are decreased and patient's insulin has been adjusted. Continue present antibiotics. The plan is for the patient to be placed in a nursing facility for further care.
[2016-11-06] MEDS: MEROPENEM 1 GM in SODIUM CHLORIDE 0.9% 100 ML IVPB SCH ×3 (00:28→17:54)
[2016-11-06] MEDS: HYDROcodone/APAP 5-325MG 1 EACH TAB PO PRN ×2 (04:33→15:23)
[2016-11-06 07:30] LABS: Glucose,Whole Blood 140 mg/dL (75-99)
[2016-11-06] MEDS: INSULIN LISPRO (humaLOG) 300 UNIT/3 ML VIAL SQ SCH ×8 (07:45→22:16)
[2016-11-06] MEDS: FUROSEMIDE 80 MG TAB PO SCH ×2 (07:47→17:54)
[2016-11-06] MEDS: DABIGATRAN 150 MG CAP PO SCH ×2 (07:47→22:13)
[2016-11-06] MEDS: LISINOPRIL 20 MG TAB PO SCH (07:47)
[2016-11-06] MEDS: METOLAZONE 2.5 MG TAB PO SCH (07:48)
[2016-11-06 07:55] LABS: Calcium 9.6 mg/dL (8.4-10.2); Potassium 5.1 mmol/L (3.5-5.1)
[2016-11-06 11:52] LABS: Glucose,Whole Blood 150 mg/dL (75-99)
--- NOTE | 2016-11-06 14:13 | P.PN ---
Subjective Principal diagnosis: Cellulitis and chronic venous stasis with ulceration History present is: This 71-year-old gentleman was admitted to the hospital with ulcerations right lower leg associated with significant chronic venous stasis. The ulcers started with some superficial trauma. The patient is a fairly large ulceration with the possible dermis and significant drainage. The patient has no associated fever chills and denies any pain at the site of ulcers. The patient has been weak in his been crawling on his knees at home. He does have underlying history of pulmonary hypertension, COPD, sleep apnea. Patient does not use his sleep apnea apparatus. He also has a history of diabetes mellitus. Blood sugars are better controlled with the regimented diet here patient A1c at admission is 9.4. Patient has no fever chills. He did have a bowel movement with no diarrhea REVIEW OF SYSTEMS: Neuro: Denies any headaches dizziness. Psych: Denies anxiety depression feels oriented. Cardiac: Denies chest pain and angina palpitations. Respiratory: Denies shortness of breath cough. GI: Denies nausea vomiting or abdominal pain. No diarrhea or constipation, bowel movement normal.. : Denies dysuria hematuria. Extremities: Denies pain. Chronic edema lower legs. Patient has bilateral lower leg dressings and Benny wraps.. Skin: Ulcer right lower leg, abrasions both knees. Constitutional: No fever, chills. Objective - Vital Signs Vital signs: Vital Signs Temp 97.9 F 11/06/16 07:00 Pulse 106 H 11/06/16 07:00 Resp 17 11/06/16 07:00 BP 110/67 11/06/16 07:00 Pulse Ox 97 11/06/16 07:00 Intake & Output 11/05/16 11/06/16 11/06/16 18:59 06:59 18:59 Intake Total 580 0 Output Total 1300 19968 200 Balance -720 -38335 -200 Weight 136.078 kg 136.078 kg Intake: Intake, IV Titration 100 Amount Meropenem 1 gm In Sodium 100 Chloride 0.9% 100 ml @ 100 mls/hr IVPB Q8HR [facility] Rx#:[id number] Oral 480 0 Output: Urine 1300 47898 200 Other: Voiding Method Urinal Urinal # Voids 1 1 1 # Bowel Movements 1 1 PHYSICAL EXAMINATION: Cooperative, at present in no acute distress. HEENT: Neck supple Chest: Clear to auscultation with generalized decreased airflow Cardiac: Normal S1-S2 no gallops systolic murmur 2/6 left sternal border, irregular rhythm. Rate controlled. Abdomen: Soft but protuberant, nontender bowel sounds present. Extremities: Edema both lower extremities . Skin ulcer not examined Neurologically: Awake, alert, oriented with well-coordinated movements. - Labs CBC & Chem 7: 11/05/16 07:19 11/06/16 06:37 Labs: Abnormal Lab Results - Last 24 Hours (Table) 11/05/16 11/05/16 11/06/16 Range/Units 17:01 20:00 06:37 BUN 51 H (9-20) mg/dL Creatinine 1.55 H (0.66-1.25) mg/dL Glucose 149 H (74-99) mg/dL POC Glucose (mg/dL) 122 H 117 H (75-99) mg/dL 11/06/16 11/06/16 Range/Units 07:23 11:47 BUN (9-20) mg/dL Creatinine (0.66-1.25) mg/dL Glucose (74-99) mg/dL POC Glucose (mg/dL) 140 H 150 H (75-99) mg/dL Assessment and Plan Plan: ASSESSMENT: 1. Cellulitis right lower leg. 2. Chronic venous stasis with ulceration right lower leg. 3. Diabetes mellitus poorly controlled with complications. 4. Pulmonary hypertension. 5. COPD. 6. Chronic kidney disease stage III. 7. Peripheral neuropathy secondary to diabetes. 8. Paroxysmal atrial fibrillation 9. Poor compliance data and treatment 10. Obstructive sleep apnea with declined use of CPAP. PLAN: Continue present medical regimen patient's condition discussed with patient and sister. Prognosis remains guarded. Patient educated regarding need for better diabetic control as well as general health improvement as he is at risk of losing his lower limbs patient condition and plan of care reviewed with patient probable transfer to nursing facility for rehab and continuation of IV antibiotics.].
[2016-11-06 16:58] LABS: Glucose,Whole Blood 356 mg/dL (75-99)
[2016-11-06] MEDS: SILVER sulfADIAZINE Cream 400 GM 1 APPLIC APPLIC TOPICAL SCH (17:54)
--- NOTE | 2016-11-06 18:28 | P.PN ---
Subjective Principal diagnosis: Diabetic ulcers and cellulitis to both legs 71-year-old male who has obesity presents to Hospital with a many week history of increasing difficulties with his lower extremities. He's had increasing ulceration with increasing drainage especially to the right lower extremity. He developed extensive ulceration. He's had difficulty walking around his home and constantly has been crawling around on his hands and knees which is resulted in some injury to his right knee and some callus formation to his right hands from crawling around. He does not give good reasoning as to why he was doing this before seeking care. He relates it is now very serious about receiving care. We'll like to have some improvement. Relates that his shortness of breath is about at baseline. He is denying chest pains or pressures. This note was having great difficulties with ambulation because of pain and difficulty and was crawling around. This may be part of how the wound worsened. States and present for the last several weeks. Feeling just slightly better today Objective - Vital Signs Vital signs: Vital Signs Temp 97.2 F L 11/06/16 14:58 Pulse 100 11/06/16 14:58 Resp 16 11/06/16 14:58 BP 105/68 11/06/16 14:58 Pulse Ox 96 11/06/16 14:58 Intake & Output 11/05/16 11/06/16 11/06/16 18:59 06:59 18:59 Intake Total 580 0 480 Output Total 1300 80870 1025 Balance -990 -53603 -545 Weight 136.078 kg 136.078 kg Intake: Intake, IV Titration 100 Amount Meropenem 1 gm In Sodium 100 Chloride 0.9% 100 ml @ 100 mls/hr IVPB Q8HR [facility] [place] Rx#:[id number] Oral 480 0 480 Output: Urine 1300 [id number] 1025 Other: Voiding Method Urinal Urinal # Voids 1 1 1 # Bowel Movements 1 1 - Exam 71-year-old male who suffers from superobesity and difficulties recently with his ambulation and ulceration especially to the right leg with drainage HEENT: Anicteric conjunctiva are pink and moist nasal mucosa grossly intact without significant lesions, there is no thrush. Poor dentition Neck: The neck is supple without significant lymphadenopathy or thyromegaly. Lungs: Symmetrical air entry expiratory wheezes few basilar crackles no bronchial sounds Heart: Irregular with a loud S4 There is no significant murmur click or rub, PMI was nondisplaced. Abdomen: Obese, Positive bowel sounds soft and nontender without palpable masses or organomegaly. There was no guarding or rebound. Extremities: The upper extremities reveal no acute lesions. IV site is intact. His extensive bilateral lower extremity edema. Extensive ulceration is seen on the right pretibial area. Approximately 10 x 10 x 0.2cm. Draining a large amount of serous material. Has a smaller lesion in the left pretibial area about 2 x 2 with a depth of 0.2 cm. There is extensive erythema and tenderness over these areas right greater than left. There is a large amount of slough. This is midforceps this is gently removed which allows a significant improvement of the leg and the ulceration. From crawling he has evidence of significant discoloration callus formation to his right knee more than the left. As well as on the knuckles of the right hand. These areas are not grossly infected at this time. Neuro: Awake alert oriented to person place and time. There are no acute new gross focal sensory motor deficits. - Labs CBC & Chem 7: 11/05/16 07:19 11/06/16 06:37 Labs: Abnormal Lab Results - Last 24 Hours (Table) 11/05/16 11/06/16 11/06/16 Range/Units 20:00 06:37 07:23 BUN 51 H (9-20) mg/dL Creatinine 1.55 H (0.66-1.25) mg/dL Glucose 149 H (74-99) mg/dL POC Glucose (mg/dL) 117 H 140 H (75-99) mg/dL 11/06/16 11/06/16 Range/Units 11:47 16:55 BUN (9-20) mg/dL Creatinine (0.66-1.25) mg/dL Glucose (74-99) mg/dL POC Glucose (mg/dL) 150 H 356 H (75-99) mg/dL Laboratory Results WBC 4.2 k/uL (3.8-10.6) 11/05/16 07:19 RBC 4.15 m/uL (4.30-5.90) L 11/05/16 07:19 Hgb 11.2 gm/dL (13.0-17.5) L 11/05/16 07:19 Hct 35.2 % (39.0-53.0) L 11/05/16 07:19 MCV 84.8 fL (80.0-100.0) 11/05/16 07:19 MCH 27.0 pg (25.0-35.0) 11/05/16 07:19 MCHC 31.8 g/dL (31.0-37.0) 11/05/16 07:19 RDW 15.5 % (11.5-15.5) 11/05/16 07:19 Plt Count 218 k/uL (150-450) 11/05/16 07:19 Neutrophils % 68 % 11/04/16 06:49 Lymphocytes % 20 % 11/04/16 06:49 Monocytes % 6 % 11/04/16 06:49 Eosinophils % 3 % 11/04/16 06:49 Basophils % 1 % 11/04/16 06:49 Neutrophils # 3.0 k/uL (1.3-7.7) 11/04/16 06:49 Lymphocytes # 0.9 k/uL (1.0-4.8) L 11/04/16 06:49 Monocytes # 0.3 k/uL (0-1.0) 11/04/16 06:49 Eosinophils # 0.1 k/uL (0-0.7) 11/04/16 06:49 Basophils # 0.0 k/uL (0-0.2) 11/04/16 06:49 Hypochromasia Marked 11/05/16 07:19 ESR 25 mm/hr (0-15) H 11/05/16 07:19 PT 13.3 sec (9.0-12.0) H 11/03/16 18:20 INR 1.4 (<1.1) 11/03/16 18:20 APTT 35.5 sec (22.0-30.0) H 11/03/16 18:20 Sodium 137 mmol/L (137-145) 11/06/16 06:37 Potassium 5.1 mmol/L (3.5-5.1) 11/06/16 06:37 Chloride 100 mmol/L (98-107) 11/06/16 06:37 Carbon Dioxide 30 mmol/L (22-30) 11/06/16 06:37 Anion Gap 7 mmol/L 11/06/16 06:37 BUN 51 mg/dL (9-20) H 11/06/16 06:37 Creatinine 1.55 mg/dL (0.66-1.25) H 11/06/16 06:37 Est GFR (MDRD) Af Amer 54 (>60 ml/min/1.73 sqM) 11/06/16 06:37 Est GFR (MDRD) Non-Af 45 (>60 ml/min/1.73 sqM) 11/06/16 06:37 Glucose 149 mg/dL (74-99) H 11/06/16 06:37 POC Glucose (mg/dL) 356 mg/dL (75-99) H 11/06/16 16:55 POC Glu Program Admin ID Chyna Hall 11/06/16 16:[address] Glu mg/dL 232 mg/dL 11/03/16 18:20 Hemoglobin A1c 9.7 % (4.2-6.1) H 11/03/16 18:20 Plasma Lactic Acid Gary 1.0 mmol/L (0.7-2.0) 11/03/16 18:20 Calcium 9.6 mg/dL (8.4-10.2) 11/06/16 06:37 Total Bilirubin 0.7 mg/dL (0.2-1.3) 11/04/16 06:49 AST 22 U/L (17-59) 11/04/16 06:49 ALT 26 U/L (21-72) 11/04/16 06:49 Alkaline Phosphatase 55 U/L (38-126) 11/04/16 06:49 C-Reactive Protein 24.3 mg/L (<10.0) H 11/05/16 07:19 Total Protein 6.4 g/dL (6.3-8.2) 11/04/16 06:49 Albumin 3.2 g/dL (3.5-5.0) L 11/04/16 06:49 Prealbumin 14 mg/dL (18-36) L 11/05/16 07:19 Urine Color Yellow 11/03/16 18:20 Urine Appearance Clear (Clear) 11/03/16 18:20 Urine pH 6.5 (5.0-8.0) 11/03/16 18:20 Ur Specific [place] 1.011 (1.001-1.035) 11/03/16 18:20 Urine Protein Negative (Negative) 11/03/16 18:20 Urine Glucose (UA) Negative (Negative) 11/03/16 18:20 Urine Ketones Negative (Negative) 11/03/16 18:20 Urine Blood Negative (Negative) 11/03/16 18:20 Urine Nitrite Negative (Negative) 11/03/16 18:20 Urine Bilirubin Negative (Negative) 11/03/16 18:20 Urine Urobilinogen <2.0 mg/dL (<2.0) 11/03/16 18:20 Ur Leukocyte Esterase Negative (Negative) 11/03/16 18:20 Vancomycin Trough 25.3 ug/mL 11/05/16 17:37 Microbiology 11/03/16 18:20 Leg - Right Gram Stain - Preliminary 11/03/16 18:20 Leg - Right Wound Culture - Preliminary Gram Neg Bacilli Presumptive Staph aureus 11/03/16 18:20 Blood Blood Culture Gram Stain - Preliminary 11/03/16 18:20 Blood Blood Culture - Preliminary 11/03/16 18:20 Urine,Voided Urine Culture - Final Assessment and Plan (1) Bilateral lower leg cellulitis Narrative/Plan: 71-year-old male presents to Hospital with evidence of worsening lower extremity edema and ulcerations over the last few weeks. He had to crawl around his legs are doing so poorly. His extensive edema, erythema as well as open ulcerations of the bilateral lower extremities. There is copious drainage. Will utilize adult briefs wrapped around the leg and some Benny wrap to keep it in place until the drainage improves. Cultures are process. With his ALLERGY to amoxicillin will utilize meropenem for now until we have further data. Continue Vancomycin while blood culture is in process Local wound care with some Silvadene and wraps will be utilized. Improved after the debridement of today Elevation of legs at rest. Likely will need a course of IV antibiotic therapy at discharge, lasting needed to go to extended care for rehab and antibiotic therapy. Baseline laboratories Enhance glucose control Status: Acute (2) Diabetic ulcer of lower leg associated with diabetes mellitus due to underlying condition, with fat layer exposed Status: Acute (3) Poorly controlled type 2 diabetes mellitus with complication Status: Acute
[2016-11-06] MEDS: VANCOMYCIN 2,000 MG in SODIUM CHLORIDE 0.9% 500 ML IVPB SCH (19:03)
[2016-11-06] MEDS: ATORVASTATIN 10 MG TAB PO SCH (22:13)
[2016-11-06 22:16] LABS: Glucose,Whole Blood 123 mg/dL (75-99)
[2016-11-07] MEDS: SILVER sulfADIAZINE Cream 400 GM 1 APPLIC APPLIC TOPICAL SCH (00:38)
[2016-11-07] MEDS: MEROPENEM 1 GM in SODIUM CHLORIDE 0.9% 100 ML IVPB SCH ×3 (00:38→14:54)
[2016-11-07] MEDS: HYDROcodone/APAP 5-325MG 1 EACH TAB PO PRN ×2 (04:42→14:54)
[2016-11-07 07:11] LABS: Glucose,Whole Blood 201 mg/dL (75-99)
[2016-11-07 07:56] LABS: Anion Gap 10 mmol/L; Blood Urea Nitrogen 51 mg/dL (9-20); Calcium 8.8 mg/dL (8.4-10.2); Carbon Dioxide 31 mmol/L (22-30); Chloride 97 mmol/L (98-107); Glucose 187 mg/dL (74-99); Non-African American GFR(MDRD) 51 (>60 ml/min/1.73 sqM); Potassium 4.7 mmol/L (3.5-5.1); Sodium 138 mmol/L (137-145)
[2016-11-07] MEDS: INSULIN LISPRO (humaLOG) 300 UNIT/3 ML VIAL SQ SCH ×6 (08:38→17:46)
[2016-11-07] MEDS: METOLAZONE 2.5 MG TAB PO SCH (08:39)
[2016-11-07] MEDS: FUROSEMIDE 80 MG TAB PO SCH ×2 (08:39→17:02)
[2016-11-07] MEDS: DABIGATRAN 150 MG CAP PO SCH (08:39)
[2016-11-07] MEDS: LISINOPRIL 20 MG TAB PO SCH (08:39)
--- NOTE | 2016-11-07 10:33 | P.PN ---
Subjective Principal diagnosis: Cellulitis right leg History present illness 71-year-old gentleman admitted to the hospital with cellulitis right lower leg. Underlying condition of chronic venous stasis and diabetes mellitus with peripheral neuritis. Patient also has a history of poor compliance to treatment and medications. Underlying history of COPD, obstructive sleep apnea, pulmonary hypertension. Also history of chronic atrial fibrillation. Patient on anticoagulation. He feels fairly well. Dressings are being changed by Dr. Arguello from ID. He did have some debridement an improvement. Patient's on antibiotics with no adverse symptoms. Final adjustments to antibiotics by Dr. Arguello potentially discharged to nursing facility tomorrow after a PICC line. REVIEW OF SYSTEMS: Neuro: Denies any headaches dizziness. Psych: Denies anxiety depression feels oriented. Cardiac: Denies chest pain and angina palpitations. Respiratory: Denies shortness of breath cough. GI: Denies nausea vomiting or abdominal pain. No diarrhea or constipation, no bowel movement yet. : Denies dysuria hematuria. Extremities: Denies pain has some chronic edema lower legs Skin: Not inspected right leg. Constitutional: No fever, chills. Objective - Vital Signs Vital signs: Vital Signs Temp 97.6 F 11/07/16 07:00 Pulse 101 H 11/07/16 07:00 Resp 15 11/07/16 07:00 BP 97/50 11/07/16 07:00 Pulse Ox 95 11/07/16 07:00 Intake & Output 11/06/16 11/07/16 11/07/16 18:59 06:59 18:59 Intake Total 480 200 Output Total 1025 2300 Balance -545 -2100 Weight 136.078 kg 136.078 kg Intake: Intake, IV Titration 100 Amount Meropenem 1 gm In Sodium 100 Chloride 0.9% 100 ml @ 100 mls/hr IVPB Q8HR [facility] Rx#:[id number] Oral 480 100 Output: Urine 1025 2300 Other: Voiding Method Urinal Toilet Urinal # Voids 1 PHYSICAL EXAMINATION: Cooperative, at present in no acute distress. HEENT: Neck supple Chest: Clear to auscultation Cardiac: Normal S1-S2 no gallops systolic murmur 2/6 left sternal border with an irregularly irregular rhythm. Abdomen: Soft bowel sounds present. Extremities: Chronic edema mild tenderness right lower leg, has Benny wraps both lower leg with dressings underneath Neurologically: Awake, alert, oriented with well-coordinated movements. - Labs CBC & Chem 7: 11/05/16 07:19 11/07/16 06:44 Labs: Abnormal Lab Results - Last 24 Hours (Table) 11/06/16 11/06/16 11/06/16 Range/Units 11:47 16:55 21:56 Chloride (98-107) mmol/L Carbon Dioxide (22-30) mmol/L BUN (9-20) mg/dL Creatinine (0.66-1.25) mg/dL Glucose (74-99) mg/dL POC Glucose (mg/dL) 150 H 356 H 123 H (75-99) mg/dL 11/07/16 11/07/16 Range/Units 06:42 06:44 Chloride 97 L (98-107) mmol/L Carbon Dioxide 31 H (22-30) mmol/L BUN 51 H (9-20) mg/dL Creatinine 1.39 H (0.66-1.25) mg/dL Glucose 187 H (74-99) mg/dL POC Glucose (mg/dL) 201 H (75-99) mg/dL Assessment and Plan Plan: ASSESSMENT: 1. Cellulitis right lower leg. 2. Chronic venous stasis with ulceration right lower leg. 3. Diabetes mellitus poorly controlled with complications. 4. Pulmonary hypertension. 5. COPD. 6. Chronic kidney disease stage III. 7. Peripheral neuropathy secondary to diabetes. 8. Paroxysmal atrial fibrillation 9. Poor compliance data and treatment 10. Obstructive sleep apnea with declined use of CPAP. PLAN: Continue present medical regimen patient's condition discussed with patient. Prognosis remains guarded. patient probable transfer to nursing facility for rehab and continuation of IV antibiotics.. Time with Patient: Less than 30
[2016-11-07 11:48] LABS: Glucose,Whole Blood 130 mg/dL (75-99)
[2016-11-07] MEDS: VANCOMYCIN 2,000 MG in SODIUM CHLORIDE 0.9% 500 ML IVPB SCH (17:02)
[2016-11-07 17:22] LABS: Glucose,Whole Blood 142 mg/dL (75-99)
[2016-11-07 20:34] LABS: Glucose,Whole Blood 201 mg/dL (75-99)
[2016-11-08 01:02] LABS: Glucose,Whole Blood 144 mg/dL (75-99)
[2016-11-08] MEDS: SILVER sulfADIAZINE Cream 400 GM 1 APPLIC APPLIC TOPICAL SCH ×4 (06:41→20:27)
[2016-11-08] MEDS: ATORVASTATIN 10 MG TAB PO SCH ×2 (06:42→20:24)
[2016-11-08] MEDS: INSULIN LISPRO (humaLOG) 300 UNIT/3 ML VIAL SQ SCH ×8 (06:43→22:39)
[2016-11-08] MEDS: DABIGATRAN 150 MG CAP PO SCH ×3 (06:44→20:24)
[2016-11-08 06:58] LABS: Glucose,Whole Blood 149 mg/dL (75-99)
[2016-11-08 07:55] LABS: Calcium 8.9 mg/dL (8.4-10.2); Potassium 4.6 mmol/L (3.5-5.1)
[2016-11-08] MEDS: MEROPENEM 1 GM in SODIUM CHLORIDE 0.9% 100 ML IVPB SCH ×2 (08:05→09:13)
[2016-11-08] MEDS: FUROSEMIDE 80 MG TAB PO SCH ×2 (08:07→16:13)
[2016-11-08] MEDS: METOLAZONE 2.5 MG TAB PO SCH (08:08)
[2016-11-08] MEDS: LISINOPRIL 20 MG TAB PO SCH (08:08)
--- NOTE | 2016-11-08 08:15 | P.DS ---
Providers Date of admission: 11/03/16 19:28 Expected date of discharge: 11/08/16 Attending physician: Danny Watosn Consults: 11/04/16 08:15 Consult Physician Urgent Consulting Provider: Rg Arguello Reason/Comments: cellulitis Do you want consulting provider notified?: Yes, Notify in am Primary care physician: Danny Watson [facility] Hospital Course: This 71-year-old gentleman was admitted to the hospital with profuse drainage from a right lower leg ulceration with denudation of the skin and exposure the fatty tissue. The patient had associated cellulitis. He has chronic venous stasis and diabetes mellitus with peripheral neuritis. The patient takes very poor care of himself. Blood sugars are not well-controlled his diet compliance is very poor. The patient is obese, has COPD and associated pulmonary hypertension. Also history of sleep apnea but does not use any CPAP. History of chronic atrial fibrillation patient is on pradaxa but only takes one a day despite being recommended to take it twice a day. He does this to save money. Patient has been offered to be on Coumadin however very poor compliance for follow-up. Patient also has a history of previous leg ulcerations. Following admission patient was seen by ID patient on antibiotics. Local debridement and dressings were done by Dr. Arguello. The patient is doing better. He has had no fever or chills. He does have underlying history of chronic kidney disease stage III secondary to diabetes mellitus. Patient will be transferred to nursing facility for rehabilitation and continuation of wound care. Patient will be on IV antibiotics as per recommendation of Dr. Arguello. Final diagnosis to include 1. Cellulitis right lower leg 2. Chronic venous stasis 3. Venous stasis and diabetic ulceration right lower leg with exposure of fatty tissue 4. Diabetes mellitus uncontrolled with complications 5. Peripheral neuritis 6. Chronic kidney disease stage III 7. COPD 8. Pulmonary hypertension 9. Sleep apnea 10. Obesity 11. Poor compliance to diet and treatment 12. Chronic atrial fibrillation Plan - Discharge Summary New Discharge Prescriptions: Insulin Glargine,Hum.rec.anlog [Lantus Solostar] 12 unit SQ HS #10 ml Discharge Medication List Furosemide [Lasix] 80 mg PO BID 05/06/14 [History] Metolazone [Zaroxolyn] 2.5 mg PO DAILY 06/10/14 [History] Lovastatin [Mevacor] 10 mg PO HS 10/29/15 [History] Dabigatran Etexilate Mesylate [Pradaxa] 150 mg PO BID 11/03/16 [History] Lisinopril [Zestril] 20 mg PO DAILY 11/03/16 [History] Acetaminophen Tab [Tylenol] 650 mg PO Q6HR PRN #0 tab 11/08/16 [Rx] Dabigatran [Pradaxa] 150 mg PO BID cap 11/08/16 [Rx] INSULIN LISPRO (humaLOG) [humaLOG (formulary)] 10 unit SQ AC-TID vial 11/08/16 [Rx] Insulin Glargine,Hum.rec.anlog [Lantus Solostar] 12 unit SQ HS #10 ml 11/08/16 [ Rx] SILVER sulfADIAZINE Cream [Silvadene Cream] 1 applic TOPICAL BID applic [Rx] Follow up Appointment(s)/Referral(s): Danny Watson MD [Primary Care Provider] - 1-2 days [facility], [NON-STAFF] - 1 Week Discharge Disposition: TRANSFER TO SNF/ECF
[2016-11-08] MEDS: HYDROcodone/APAP 5-325MG 1 EACH TAB PO PRN (09:21)
[2016-11-08 11:38] LABS: Glucose,Whole Blood 168 mg/dL (75-99)
[2016-11-08] MEDS ORDERED: VANCOMYCIN TROUGH DUE 1 EACH MISC MISCELLANE ONE (17:00)
[2016-11-08 17:30] LABS: Glucose,Whole Blood 125 mg/dL (75-99)
[2016-11-08 20:12] LABS: Glucose,Whole Blood 213 mg/dL (75-99)
--- NOTE | 2016-11-08 22:17 | P.PN ---
Subjective Principal diagnosis: Diabetic ulcers and cellulitis to both legs 71-year-old male who has obesity presents to Hospital with a many week history of increasing difficulties with his lower extremities. He's had increasing ulceration with increasing drainage especially to the right lower extremity. He developed extensive ulceration. He's had difficulty walking around his home and constantly has been crawling around on his hands and knees which is resulted in some injury to his right knee and some callus formation to his right hands from crawling around. He does not give good reasoning as to why he was doing this before seeking care. He relates it is now very serious about receiving care. We'll like to have some improvement. Relates that his shortness of breath is about at baseline. He is denying chest pains or pressures. This note was having great difficulties with ambulation because of pain and difficulty and was crawling around. This may be part of how the wound worsened. States have been present for the last several weeks. Feeling slightly better today, seems to be in less pain Objective - Vital Signs Vital signs: Vital Signs Temp 97.8 F 11/08/16 15:02 Pulse 115 H 11/08/16 15:48 Resp 16 11/08/16 15:48 BP 132/72 11/08/16 15:02 Pulse Ox 98 11/08/16 15:02 Intake & Output 11/08/16 11/08/16 11/09/16 06:59 18:59 06:59 Intake Total 590 Output Total 900 300 Balance -310 -300 Weight 136.078 kg 136.078 kg Intake: Intake, IV Titration 0 Amount Vancomycin 2,000 mg In 0 Sodium Chloride 0.9% 500 ml @ 167 mls/hr IVPB Q24H [facility] OF [facility] Rx#:[id number] Oral 590 Output: Urine 900 300 Other: Voiding Method Toilet Toilet Urinal Urinal # Voids 2 # Bowel Movements 2 - Exam 71-year-old male who suffers from superobesity and difficulties recently with his ambulation and ulceration especially to the right leg with drainage HEENT: Anicteric conjunctiva are pink and moist nasal mucosa grossly intact without significant lesions, there is no thrush. Poor dentition Neck: The neck is supple without significant lymphadenopathy or thyromegaly. Lungs: Symmetrical air entry expiratory wheezes few basilar crackles no bronchial sounds Heart: Irregular with a loud S4 There is no significant murmur click or rub, PMI was nondisplaced. Abdomen: Obese, Positive bowel sounds soft and nontender without palpable masses or organomegaly. There was no guarding or rebound. Extremities: The upper extremities reveal no acute lesions. IV site is intact. His extensive bilateral lower extremity edema. The extensive ulceration on the right pretibial area has shown a marked improvement since the debridement, topical therapy with Silvadene, edema control with compression, diuresis and antibiotic therapy. The area is now down to 3 x 3 x 0.2. Has a smaller lesion in the left pretibial area about 2 x 2 with a depth of 0.2 cm. the extensive erythema and tenderness has now improved over these areas right greater than left. From crawling he has evidence of significant discoloration callus formation to his right knee more than the left. As well as on the knuckles of the right hand. These areas are not grossly infected at this time. Neuro: Awake alert oriented to person place and time. There are no acute new gross focal sensory motor deficits. - Labs CBC & Chem 7: 11/05/16 07:19 11/08/16 06:58 Labs: Abnormal Lab Results - Last 24 Hours (Table) 11/08/16 11/08/16 11/08/16 Range/Units 01:00 06:56 06:58 Chloride 96 L (98-107) mmol/L Carbon Dioxide 32 H (22-30) mmol/L BUN 57 H (9-20) mg/dL Creatinine 1.51 H (0.66-1.25) mg/dL Glucose 147 H (74-99) mg/dL POC Glucose (mg/dL) 144 H 149 H (75-99) mg/dL 11/08/16 11/08/16 11/08/16 Range/Units 11:36 17:29 20:11 Chloride (98-107) mmol/L Carbon Dioxide (22-30) mmol/L BUN (9-20) mg/dL Creatinine (0.66-1.25) mg/dL Glucose (74-99) mg/dL POC Glucose (mg/dL) 168 H 125 H 213 H (75-99) mg/dL Laboratory Results WBC 4.2 k/uL (3.8-10.6) 11/05/16 07:19 RBC 4.15 m/uL (4.30-5.90) L 11/05/16 07:19 Hgb 11.2 gm/dL (13.0-17.5) L 11/05/16 07:19 Hct 35.2 % (39.0-53.0) L 11/05/16 07:19 MCV 84.8 fL (80.0-100.0) 11/05/16 07:19 MCH 27.0 pg (25.0-35.0) 11/05/16 07:19 MCHC 31.8 g/dL (31.0-37.0) 11/05/16 07:19 RDW 15.5 % (11.5-15.5) 11/05/16 07:19 Plt Count 218 k/uL (150-450) 11/05/16 07:19 Neutrophils % 68 % 11/04/16 06:49 Lymphocytes % 20 % 11/04/16 06:49 Monocytes % 6 % 11/04/16 06:49 Eosinophils % 3 % 11/04/16 06:49 Basophils % 1 % 11/04/16 06:49 Neutrophils # 3.0 k/uL (1.3-7.7) 11/04/16 06:49 Lymphocytes # 0.9 k/uL (1.0-4.8) L 11/04/16 06:49 Monocytes # 0.3 k/uL (0-1.0) 11/04/16 06:49 Eosinophils # 0.1 k/uL (0-0.7) 11/04/16 06:49 Basophils # 0.0 k/uL (0-0.2) 11/04/16 06:49 Hypochromasia Marked 11/05/16 07:19 ESR 25 mm/hr (0-15) H 11/05/16 07:19 PT 13.3 sec (9.0-12.0) H 11/03/16 18:20 INR 1.4 (<1.1) 11/03/16 18:20 APTT 35.5 sec (22.0-30.0) H 11/03/16 18:20 Sodium 137 mmol/L (137-145) 11/08/16 06:58 Potassium 4.6 mmol/L (3.5-5.1) 11/08/16 06:58 Chloride 96 mmol/L (98-107) L 11/08/16 06:58 Carbon Dioxide 32 mmol/L (22-30) H 11/08/16 06:58 Anion Gap 9 mmol/L 11/08/16 06:58 BUN 57 mg/dL (9-20) H 11/08/16 06:58 Creatinine 1.51 mg/dL (0.66-1.25) H 11/08/16 06:58 Est GFR (MDRD) Af Amer 56 (>60 ml/min/1.73 sqM) 11/08/16 06:58 Est GFR (MDRD) Non-Af 46 (>60 ml/min/1.73 sqM) 11/08/16 06:58 Glucose 147 mg/dL (74-99) H 11/08/16 06:58 POC Glucose (mg/dL) 213 mg/dL (75-99) H 11/08/16 20:11 POC Glu Sales Strategy Manager Karen Thompson 11/08/16 20:[address] Glu mg/dL 232 mg/dL 11/03/16 18:20 Hemoglobin A1c 9.7 % (4.2-6.1) H 11/03/16 18:20 Plasma Lactic Acid [place] 1.0 mmol/L (0.7-2.0) 11/03/16 18:20 Calcium 8.9 mg/dL (8.4-10.2) 11/08/16 06:58 Total Bilirubin 0.7 mg/dL (0.2-1.3) 11/04/16 06:49 AST 22 U/L (17-59) 11/04/16 06:49 ALT 26 U/L (21-72) 11/04/16 06:49 Alkaline Phosphatase 55 U/L (38-126) 11/04/16 06:49 C-Reactive Protein 24.3 mg/L (<10.0) H 11/05/16 07:19 Total Protein 6.4 g/dL (6.3-8.2) 11/04/16 06:49 Albumin 3.2 g/dL (3.5-5.0) L 11/04/16 06:49 Prealbumin 14 mg/dL (18-36) L 11/05/16 07:19 Urine Color Yellow 11/03/16 18:20 Urine Appearance Clear (Clear) 11/03/16 18:20 Urine pH 6.5 (5.0-8.0) 11/03/16 18:20 Ur Specific [place] 1.011 (1.001-1.035) 11/03/16 18:20 Urine Protein Negative (Negative) 11/03/16 18:20 Urine Glucose (UA) Negative (Negative) 11/03/16 18:20 Urine Ketones Negative (Negative) 11/03/16 18:20 Urine Blood Negative (Negative) 11/03/16 18:20 Urine Nitrite Negative (Negative) 11/03/16 18:20 Urine Bilirubin Negative (Negative) 11/03/16 18:20 Urine Urobilinogen <2.0 mg/dL (<2.0) 11/03/16 18:20 Ur Leukocyte Esterase Negative (Negative) 11/03/16 18:20 Vancomycin Trough 25.3 ug/mL 11/05/16 17:37 Microbiology 11/03/16 18:20 Blood Blood Culture - Final 11/03/16 18:20 Leg - Right Gram Stain - Final 11/03/16 18:20 Leg - Right Wound Culture - Final Proteus vulgaris Staphylococcus aureus 11/03/16 18:20 Blood Blood Culture Gram Stain - Preliminary 11/03/16 18:20 Blood Blood Culture - Preliminary Coagulase Negative Staph 11/03/16 18:20 Urine,Voided Urine Culture - Final Assessment and Plan (1) Bilateral lower leg cellulitis Narrative/Plan: 71-year-old male presents to Hospital with evidence of worsening lower extremity edema and ulcerations over the last few weeks. He had to crawl around his legs are doing so poorly. His extensive edema, erythema as well as open ulcerations of the bilateral lower extremities. There is copious drainage. Will utilize adult briefs wrapped around the leg and some Benny wrap to keep it in place until the drainage improves. Cultures are process. With his ALLERGY to amoxicillin antibiotic therapy with meropenem was utilize based on prior culture data. Evidence of Proteus and MSSA from the ulceration. Antibiotic therapy will be altered to Rocephin. The plan will be for 2 weeks at the [facility] the IV access PICC line. Local wound care with some Silvadene and wraps will be utilized. Improved after the debridement Elevation of legs at rest. Monitor laboratories Enhance glucose control Status: Acute (2) Diabetic ulcer of lower leg associated with diabetes mellitus due to underlying condition, with fat layer exposed Status: Acute (3) Poorly controlled type 2 diabetes mellitus with complication Status: Acute
[2016-11-08 23:53] VITALS: RESP 18
[2016-11-09] MEDS: HYDROcodone/APAP 5-325MG 1 EACH TAB PO PRN (05:31)
[2016-11-09 07:26] LABS: Glucose,Whole Blood 183 mg/dL (75-99)
[2016-11-09 08:34] LABS: Calcium 8.8 mg/dL (8.4-10.2); Potassium 4.4 mmol/L (3.5-5.1)
[2016-11-09] MEDS: INSULIN LISPRO (humaLOG) 300 UNIT/3 ML VIAL SQ SCH ×5 (08:35→12:36)
[2016-11-09] MEDS: FUROSEMIDE 80 MG TAB PO SCH (08:39)
[2016-11-09] MEDS: DABIGATRAN 150 MG CAP PO SCH (08:39)
[2016-11-09] MEDS: METOLAZONE 2.5 MG TAB PO SCH ×3 (08:40→08:43)
[2016-11-09] MEDS: LISINOPRIL 20 MG TAB PO SCH ×2 (08:40→08:42)
[2016-11-09] MEDS ORDERED: cefTRIAXone 2,000 MG in SODIUM CHLORIDE 0.9% 100 ML IVPB SCH (09:00)
[2016-11-09 09:43] VITALS: BP 106/73; TEMP 97.7
[2016-11-09 09:48] VITALS: PULSE 116
--- NOTE | 2016-11-09 11:57 | XR ---
EXAMINATION TYPE: XR chest 1V portable DATE OF EXAM: 11/09/2016 11:50 AM CLINICAL HISTORY: Extended-care facility placement. TECHNIQUE: Single AP portable frontal upright view of the chest is obtained. COMPARISON: Chest x-ray April 15, 2014. FINDINGS: There is no focal air space opacity, pleural effusion, or pneumothorax seen. The cardiac silhouette size is upper limits of normal. The osseous structures are intact. IMPRESSION: No acute pulmonary process.
[2016-11-09 12:20] LABS: Glucose,Whole Blood 159 mg/dL (75-99)
--- NOTE | 2016-11-10 10:03 | PN ---
DATE OF SERVICE: 11/09/2016 CHIEF COMPLAINT: Re-evaluation. HISTORY OF PRESENT ILLNESS: A 71-year-old gentleman was admitted to the hospital with cellulitis right lower leg. The patient also has underlying history of chronic atrial fibrillation and COPD, diabetes mellitus, and hypertension. The patient is actually doing fairly well. His lower extremities have been dressed and is receiving IV antibiotics. The patient has been on Pradaxa and radiologist will not put a PICC line in unless the patient has been off it for four or 5 days. The patient in view of this will be transferred to a nursing facility to continue IV antibiotics for a peripheral line. The patient will be returned back for a PICC line later. Patient's general condition was discussed with the patient. REVIEW OF SYSTEMS: NEURO: Denies any headaches, dizziness. PSYCH: No anxiety. CARDIAC: No chest pain, angina, palpitations. RESPIRATORY: No shortness of breath, cough, hemoptysis. GI: No nausea, vomiting, abdominal pain, diarrhea. : No symptoms of dysuria, hematuria, urgency, frequency. EXTREMITIES: No pain or edema. CONSTITUTIONAL: No fever or chills. PHYSICAL EXAMINATION: Pleasant gentleman, at present in no distress. He is moderately obese. Vital signs reveals temperature 97.7, pulse 93, repeat was 116, respirations 18, blood pressure 106/73. HEENT: Normocephalic. NECK: Supple. CHEST: Clear to auscultation. CARDIAC: Normal S1 and S2 with no gallops. Systolic murmur 2/6 left sternal border. Distant heart sounds. ABDOMEN: Protuberant, soft. Bowel sounds present. Extremities revealed chronic edema. Patient has dressings with peace wraps both lower legs. Neurologically awake, alert, oriented with well-coordinated movements. Laboratory assessment was electrolytes which revealed sodium 135, chloride 94, CO2 content 31, BUN 66, creatinine 1.51. Glucose was 170. Calcium 8.8. ASSESSMENT: 1. Cellulitis, both lower legs. 2. Bacteremia with Staph capitis. 3. Cellulitis right lower leg. 4. Chronic venous stasis. 5. Diabetes mellitus. 6. Chronic kidney disease Stage III. 7. Chronic obstructive pulmonary disease. 8. History of obstructive sleep apnea. PLAN: Patient at present is stable. The patient will be discharged to a nursing facility. The patient has been noted to have Rocephin by Dr. Arguello. The patient's blood culture coagulase-negative Staph. The patient's positive blood culture was more felt to be a skin contaminant. The patient has Proteus and methicillin sensitive Staph aureus from the ulcerations. The patient, in view of this, was switched to Rocephin. The patient will be on Rocephin and continue the Silvadene and dressing of both lower legs. The patient's condition discussed with the patient. Prognosis remains guarded. The patient's plan for discharge. Chest x-ray is unremarkable.
== END 2016-11-09 16:20 | DRG 300 ==
LOC: EC 16:42 → 3SUR 19:28
PROVIDERS: ADMIT Internal Medicine; ATTEND Internal Medicine
DX: I83.018 Varicose veins of right lower extremity with ulcer other part of lower leg (principal); R78.81 Bacteremia; L03.116 Cellulitis of left lower limb; L97.812 Non-pressure chronic ulcer of other part of right lower leg with fat layer exposed; I13.0 Hypertensive heart and chronic kidney disease with heart failure and stage 1 through stage 4 chronic kidney disease, or unspecified chronic kidney disease; L03.115 Cellulitis of right lower limb; E11.22 Type 2 diabetes mellitus with diabetic chronic kidney disease; E11.42 Type 2 diabetes mellitus with diabetic polyneuropathy; I50.9 Heart failure, unspecified; I27.2 Other secondary pulmonary hypertension; E11.622 Type 2 diabetes mellitus with other skin ulcer; E11.649 Type 2 diabetes mellitus with hypoglycemia without coma; E11.65 Type 2 diabetes mellitus with hyperglycemia; E66.9 Obesity, unspecified; E78.5 Hyperlipidemia, unspecified; G47.33 Obstructive sleep apnea (adult) (pediatric); I48.0 Paroxysmal atrial fibrillation; I48.2 Chronic atrial fibrillation; J44.9 Chronic obstructive pulmonary disease, unspecified; N18.3 Chronic kidney disease, stage 3 (moderate); N42.9 Disorder of prostate, unspecified; L84 Corns and callosities; Z79.01 Long term (current) use of anticoagulants; Z79.4 Long term (current) use of insulin; Z79.899 Other long term (current) drug therapy; Z86.14 Personal history of Methicillin resistant Staphylococcus aureus infection; Z87.891 Personal history of nicotine dependence; Z88.0 Allergy status to penicillin; Z88.1 Allergy status to other antibiotic agents; Z85.9 Personal history of malignant neoplasm, unspecified; Z82.49 Family history of ischemic heart disease and other diseases of the circulatory system; Z91.19 Patient's noncompliance with other medical treatment and regimen
CPT/HCPCS: 36415; 71010; 80048; 80053; 80202; 81003; 83036; 83605; 84134; 85025; 85027; 85610; 85652; 85730; 86140; 87040; 87070; 87077; 87086; 87186; 87205; 96365; 96366; 99285

== ENCOUNTER → 2016-12-28 | Outpatient (CLI) | payer MEDICARE, BC ==
--- NOTE | 2016-12-28 10:04 | US ---
EXAMINATION TYPE: US venous doppler duplex LE DATE OF EXAM: 12/28/2016 7:35 AM COMPARISON: LOWER EXTREMITY VENOUS INSUFFICIENCY SIDE PERFORMED: bilateral 1) Color flow is present and patency is documented in the following vessels. No DVT or SVT is noted . ? EIV ? Common Femoral Vein ? Deep Femoral Vein ? Femoral Vein ? Popliteal Vein ? Proximal Calf Veins ? Greater Saph Vein ? Upper Small Saph Vein 2) There is venous reflux noted at the following venous levels: right CFV,DFV, FV mid & distal, POP prox & distal , GSV lower. Left GSV upper & lower, CFV, FV prox, mid & distal, POP prox, prox calf veins . IMPRESSION: 1. Lower extremity venous reflux present bilaterally.
--- NOTE | 2016-12-29 10:47 | P.ARTDOP ---
Arterial Doppler LOWER EXTREMITY ARTERIAL DOPPLER: DATE OF SERVICE: 12/28/2016 Reason for study: Leg pain. Doppler waveforms: Multiphasic except at the toe level where it is moderately blunted.. Pulse volume recording: Normal configuration except at the toe level where it is also blunted.. Pressure gradients: Only mild gradients at the foot level. Ankle-brachial indices: Greater than 1 bilaterally. Toe pressures: 82 on the right, 71 on the left Impression: Normal flow patterns proximally. Decreased toe pressures and waveforms could be either distal disease or vasospasm. Does not correlate with symptomatology..
== END | disposition home or self-care (01) ==
LOC: RADUSWWP 06:56
PROVIDERS: ATTEND Internal Medicine Infectious Disease
DX: I87.2 Venous insufficiency (chronic) (peripheral) (principal); M79.604 Pain in right leg; M79.605 Pain in left leg
CPT/HCPCS: 93923; 93970

== ENCOUNTER 2019-02-27 10:23 | Inpatient (IN) | payer MEDICARE, BC ==
--- NOTE | 2019-02-27 11:22 | ED ---
General Adult HPI - General Chief complaint: Extremity Injury, Lower Stated complaint: Diabetic, leg problems, Toe Nail Injury Time Seen by Provider: 02/27/19 10:59 Source: patient Mode of arrival: wheelchair Limitations: no limitations - History of Present Illness Initial comments: Dictation was produced using [employer] dictation software. please excuse any grammatical, word or spelling errors. Chief Complaint: 73-year-old male sent in by primary care physician for lower extremity wounds. History of Present Illness: 73-year-old male with multiple comorbidities. He presents today from primary care physician's office for lower extremity wounds. Patient states that he was instructed to come here after being seen at his PCPs office. Patient has chronic bilateral lower extremity wounds secondary to diabetes and venous insufficiency. States that he noted some bleeding to his foot over the last 1-2 days. Patient has chronic neuropathy. He also complains of a pulled groin. States it is been dragging his feet due to the pain. Patient also unable to ambulate. Patient chronically debilitated however his symptoms have been much worse and he has to crawl on his knees to get around the house. The ROS documented in this emergency department record has been reviewed and confirmed by me. Those systems with pertinent positive or negative responses have been documented in the HPI. All other systems are other negative and/or noncontributory. PHYSICAL EXAM: General Impression: Alert and oriented x3, not in acute distress, obese HEENT: Normocephalic atraumatic, extra-ocular movements intact, pupils equal and reactive to light bilaterally, mucous membranes moist. Cardiovascular: Heart regular rate and rhythm, S1&S2 audible, no murmurs, rubs or gallops Chest: Lungs clear to auscultation bilaterally, no rhonchi, no wheeze, no rales Abdomen: Bowel sounds present, abdomen soft, non-tender, non-distended, no organomegaly Musculoskeletal: Pulses present and equal in all extremities, no peripheral edema Motor: no focal deficits noted Neurological: CN II-XII grossly intact, no focal motor or sensory deficits noted Skin: Hyperpigmentation and skin scaling of the bilateral lower extremities. Subluxed right fifth toenail. Multiple areas of scabbing to the bilateral knees, swelling of the prepatellar bursa on the right Psych: Normal affect and mood ED course: 73-year-old male sent in from primary care physician's office for lower extremity wounds. Vital signs upon arrival shows blood pressure 94/59, worse vital signs within acceptable limits. Patient in no acute distress. Patient case is discussed with his primary care physician. He was sent here for chronic debility. Patient lives alone and is noncompliant with his medications.Laboratory evaluation obtained. A CBC. Metabolic panel shows potassium 5.8, renal markers elevated however the baseline. Tetanus was updated. She given Kayexalate for slightly elevated potassium. Medications were reviewed. She is well-appearing at this time. Patient be admitted for grave disability and her social situation. EKG interpretation: Ventricular rate 90, atrial fibrillation, QS 84, QTC 423. No IN prolongation, no QTC prolongation, no ST or T-wave changes noted. EKG compared to 04/09/2014 showing no changes. Overall, this EKG is unremarkable - Related Data Home Medications Medication Instructions Recorded Confirmed Furosemide [Lasix] 80 mg PO BID 05/06/14 02/27/19 Metolazone [Zaroxolyn] 2.5 mg PO DAILY 06/10/14 02/27/19 Lovastatin [Mevacor] 10 mg PO HS 05/29/15 02/27/19 Lisinopril [Zestril] 20 mg PO DAILY 11/03/16 02/27/19 Insulin Aspart [NovoLOG Flexpen] 20 units SQ AC-TID 02/27/19 02/27/19 Insulin Glargine,Hum.rec.anlog 20 unit SQ DAILY 02/27/19 02/27/19 [Basaglar Kwikpen U-100] Metoprolol Succinate [Toprol Xl] 50 mg PO DAILY 02/27/19 02/27/19 Rivaroxaban [Xarelto] 15 mg PO DAILY 02/27/19 02/27/19 Tamsulosin HCl [Flomax] 0.4 mg PO DAILY 02/27/19 02/27/19 Allergies Allergy/AdvReac Type Severity Reaction Status Date / Time amoxicillin trihydrate AdvReac Itching Verified 02/27/19 12:21 [From Augmentin] potassium clavulanate AdvReac Itching Verified 02/27/19 12:21 [From Augmentin] Review of Systems ROS Statement: Those systems with pertinent positive or pertinent negative responses have been documented in the HPI. ROS Other: All systems not noted in ROS Statement are negative. Past Medical History Past Medical History: Atrial Fibrillation, Cancer, Heart Failure, Diabetes Mellitus, Hyperlipidemia, Hypertension, Prostate Disorder Additional Past Medical History / Comment(s): PROSTATE REMOVED- CANCER. WOUND RIGHT FOOT, neuropathy History of Any Multi-Drug Resistant Organisms: MRSA Date of last positivie culture/infection: 04/12/2014 MDRO Source:: Right Foot Past Surgical History: Prostate Surgery Additional Past Surgical History / Comment(s): Electrocardioversion for atrial fibrillation 3 years ago. DEBRIDEMENT RIGHT FOOT Past Anesthesia/Blood Transfusion Reactions: No Reported Reaction Past Psychological History: No Psychological Hx Reported Smoking Status: Former smoker Past Alcohol Use History: Rare Past Drug Use History: None Reported - Past Family History Mother Family Medical History: Coronary Artery Disease (CAD), GI Bleed Additional Family Medical History / Comment(s): AGE 84 FROM HEART PROBLEMS Father Family Medical History: CVA/TIA Additional Family Medical History / Comment(s): FROM MASSIVE STROKE AGE 71 General Exam Limitations: no limitations Course Vital Signs 02/27/19 10:52 Temperature 98.6 F Pulse Rate 88 Respiratory 20 Rate Blood Pressure 94/59 O2 Sat by Pulse 94 L Oximetry Medical Decision Making - Lab Data Result diagrams: 02/27/19 11:35 02/27/19 11:35 Lab Results 02/27/19 02/27/19 02/27/19 Range/Units 11:35 11:35 11:35 WBC 7.1 (3.8-10.6) k/uL RBC 4.90 (4.30-5.90) m/uL Hgb 12.8 L (13.0-17.5) gm/dL Hct 41.0 (39.0-53.0) % MCV 83.7 (80.0-100.0) fL MCH 26.2 (25.0-35.0) pg MCHC 31.3 (31.0-37.0) g/dL RDW 17.2 H (11.5-15.5) % Plt Count 242 (150-450) k/uL Neutrophils % 75 % Lymphocytes % 13 % Monocytes % 6 % Eosinophils % 3 % Basophils % 0 % Neutrophils # 5.3 (1.3-7.7) k/uL Lymphocytes # 1.0 (1.0-4.8) k/uL Monocytes # 0.4 (0-1.0) k/uL Eosinophils # 0.2 (0-0.7) k/uL Basophils # 0.0 (0-0.2) k/uL Hypochromasia Slight Anisocytosis Slight Sodium 137 (137-145) mmol/L Potassium 5.8 H (3.5-5.1) mmol/L Chloride 100 (98-107) mmol/L Carbon Dioxide 29 (22-30) mmol/L Anion Gap 8 mmol/L BUN 77 H (9-20) mg/dL Creatinine 1.84 H (0.66-1.25) mg/dL Est GFR (CKD-EPI)AfAm 42 (>60 ml/min/1.73 sqM) Est GFR (CKD-EPI)NonAf 36 (>60 ml/min/1.73 sqM) Glucose 188 H (74-99) mg/dL Plasma Lactic Acid Gary 1.4 (0.7-2.0) mmol/L Calcium 8.9 (8.4-10.2) mg/dL Disposition Clinical Impression: Gravely disabled Disposition: ADMITTED IP TO THIS HOSP Condition: Fair Is patient prescribed a controlled substance at d/c from ED?: No Referrals: Danny Watson MD [Primary Care Provider] - 1-2 days Decision Time: 13:07
[2019-02-27] MEDS ORDERED: DIPH,PERTUS(ACELL)TETVAC-LF 0.5 ML VIAL IM ONE (11:35)
[2019-02-27 11:53] LABS: Anisocytosis Slight; Basophils % (A) 0 %; Eosinophils # (A) 0.2 k/uL (0-0.7); Eosinophils % (A) 3 %; HGB 12.8 gm/dL (13.0-17.5); Hypochromasia Slight; Lymphocytes % (A) 13 %; MCH 26.2 pg (25.0-35.0); MCHC 31.3 g/dL (31.0-37.0); MCV 83.7 fL (80.0-100.0); Mean Platelet Volume 8.1; Monocytes # (A) 0.4 k/uL (0-1.0); Monocytes % (A) 6 %; Neutrophils # (A) 5.3 k/uL (1.3-7.7); Neutrophils % (A) 75 %; Platelet Count 242 k/uL (150-450); RDW 17.2 % (11.5-15.5); WBC 7.1 k/uL (3.8-10.6)
[2019-02-27 12:01] LABS: Calcium 8.9 mg/dL (8.4-10.2); Potassium 5.8 mmol/L (3.5-5.1)
[2019-02-27] MEDS ORDERED: SODIUM POLYSTYRENE SULFONATE 15 GM/60 ML BOTTLE PO ONE (13:00)
[2019-02-27] MEDS ORDERED: SODIUM CHLORIDE 0.9% 500 ML IV STA (13:00)
[2019-02-27] MEDS ORDERED: NALOXONE 0.4 MG/ML 1 ML VIAL IV PRN (13:07)
[2019-02-27 13:16] LABS: Appearance,Urine Cloudy (Clear); Bacteria,Urine Many /hpf; Bilirubin,Urine Negative (Negative); Blood,Urine Small (Negative); Color,Urine Yellow; Glucose,Urine (UA) Negative (Negative); Ketones,Urine Negative (Negative); Leukocyte Esterase,Urine Large (Negative); Mucus,Urine Rare /hpf; Nitrite,Urine Positive (Negative); PH, Urine 5.5 (5.0-8.0); Protein,Urine 1+ (Negative); RBC,Urine 13 /hpf (0-5); Specific Gravity,Urine 1.016 (1.001-1.035); Squamous Epithelial Cell,Urine 2 /hpf (0-4); Urobilinogen,Urine <2.0 mg/dL (<2.0); WBC,Urine >182 /hpf (0-5)
[2019-02-27] MEDS ORDERED: FUROSEMIDE 80 MG TAB PO STA (13:31)
[2019-02-27] MEDS: SODIUM CHLORIDE 0.9% 1,000 ML IV SCH (15:40)
--- NOTE | 2019-02-27 16:02 | P.HPIM ---
History of Present Illness H&P Date: 02/27/19 Chief Complaint: debility 73-year-old male with PMH of atrial fibrillation, CHF, diabetes mellitus, hyperlipidemia, hypertension, history of prostate cancer, chronic lower ext remity wounds from venous insufficiency and diabetes presents the ED for debility. Patient reports that he lives alone. Patient states that he pulled his right groin 3 weeks ago, since then has been ambulating on his knees and has been unable to get in and out of his chair. Patient reports that his feet ache bilaterally at night. He ambulates with a wheelchair and walker. Patient denies any headache, lower extremity edema, nausea or vomiting, fever or chills, cough, chest pain, shortness breath, changes in urination or bowel habits. No changes in appetite or weight. Patient denies any dizziness, numbness/weakness/tingling of the extremities. In the ED, vital signs are stable. CBC was unremarkable. CMP showed a potassium of 5.8, BUN 77, creatinine 1.84 with glucose 188. Lactic acid was negative. Urinalysis shows large leukocyte esterase. Patient is admitted for debility with social work consulted. Review of Systems Pertinent positives and negatives as discussed in HPI, a complete review of systems was performed and all other systems are negative. Past Medical History Past Medical History: Atrial Fibrillation, Cancer, Heart Failure, Diabetes Mellitus, Hyperlipidemia, Hypertension, Prostate Disorder Additional Past Medical History / Comment(s): PROSTATE REMOVED- CANCER. WOUND RIGHT FOOT, neuropathy History of Any Multi-Drug Resistant Organisms: MRSA Date of last positivie culture/infection: 04/12/2014 MDRO Source:: Right Foot Past Surgical History: Prostate Surgery Additional Past Surgical History / Comment(s): Electrocardioversion for atrial fibrillation 3 years ago. DEBRIDEMENT RIGHT FOOT Past Anesthesia/Blood Transfusion Reactions: No Reported Reaction Past Psychological History: No Psychological Hx Reported Additional Psychological History / Comment(s): Patient has history of smoking one and half packs of cigarettes per day for 15 years. He denies any medical marijuana, marijuana or street drug use. Patient states he drinks alcohol rarely. 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 He denies having any pets in the home. He is currently living alone and has moved from [place]. He denies any service Smoking Status: Former smoker Past Alcohol Use History: Rare Additional Past Alcohol Use History / Comment(s): Patient has history of smoking one and half packs of cigarettes per day for 15 years. He denies any medical marijuana, marijuana or street drug use. Patient states he drinks alcohol rarely. 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 He denies having any pets in the home. He is currently living alone and has moved from [place]. He denies any service Past Drug Use History: None Reported - Past Family History Mother Family Medical History: Coronary Artery Disease (CAD), GI Bleed Additional Family Medical History / Comment(s): AGE 84 FROM HEART PROBLEMS Father Family Medical History: CVA/TIA Additional Family Medical History / Comment(s): FROM MASSIVE STROKE AGE 71 Medications and Allergies Home Medications Medication Instructions Recorded Confirmed Type Furosemide [Lasix] 80 mg PO BID 05/06/14 02/27/19 History Metolazone [Zaroxolyn] 2.5 mg PO DAILY 06/10/14 02/27/19 History Lovastatin [Mevacor] 10 mg PO HS 05/29/15 02/27/19 History Lisinopril [Zestril] 20 mg PO DAILY 11/03/16 02/27/19 History Insulin Aspart [NovoLOG Flexpen] 20 units SQ AC-TID 02/27/19 02/27/19 History Insulin Glargine,Hum.rec.anlog 20 unit SQ DAILY 02/27/19 02/27/19 History [Basaglar Kwikpen U-100] Metoprolol Succinate [Toprol Xl] 50 mg PO DAILY 02/27/19 02/27/19 History Rivaroxaban [Xarelto] 15 mg PO DAILY 02/27/19 02/27/19 History Tamsulosin HCl [Flomax] 0.4 mg PO DAILY 02/27/19 02/27/19 History Allergies Allergy/AdvReac Type Severity Reaction Status Date / Time amoxicillin trihydrate AdvReac Itching Verified 02/27/19 12:21 [From Augmentin] potassium clavulanate AdvReac Itching Verified 02/27/19 12:21 [From Augmentin] Physical Exam Vitals: Vital Signs Temp Pulse Pulse Resp BP BP Pulse Ox 02/27/19 14:57 97.8 F 87 16 109/70 99 02/27/19 14:39 18 02/27/19 13:19 98.2 F 89 18 106/86 96 02/27/19 10:52 98.6 F 88 20 94/59 94 L Intake and Output 02/27/19 02/27/19 02/27/19 06:59 14:59 22:59 Other: Weight 131.542 kg General: [non toxic], [morbidly obese], [appears at stated age] Derm: [warm], [dry] Head: [atraumatic], [normocephalic], [symmetric] Eyes: [EOMI], [no lid lag], [anicteric sclera] Mouth: [no lip lesion], [mucus membranes moist] Cardiovascular: [S1S2 reg], [no murmur], [unable to palpate DP pulses bilaterally] Lungs: [decreased breath sounds bilateral], [no rhonchi, no rales] , [no accessory muscle use] Abdominal: [soft], [ nontender to palpation], [no guarding], [no appreciable organomegaly] Ext: [no gross muscle atrophy], [2+ edema], [no contractures], [venous stasis skin changes bilateral lower extremities with severe onychomycosis] Neuro: [ CN II-XI grossly intact], [no focal neuro deficits] Psych: [Alert], [oriented], [appropriate affect] Results CBC & Chem 7: 02/27/19 11:35 02/27/19 11:35 Labs: Abnormal Lab Results - Last 24 Hours (Table) 02/27/19 02/27/19 02/27/19 Range/Units 11:35 11:35 12:30 Hgb 12.8 L (13.0-17.5) gm/dL RDW 17.2 H (11.5-15.5) % Potassium 5.8 H (3.5-5.1) mmol/L BUN 77 H (9-20) mg/dL Creatinine 1.84 H (0.66-1.25) mg/dL Glucose 188 H (74-99) mg/dL Urine Protein 1+ H (Negative) Urine Blood Small H (Negative) Ur Leukocyte Esterase Large H (Negative) Urine RBC 13 H (0-5) /hpf Urine WBC >182 H (0-5) /hpf Urine WBC Clumps Many H (None) /hpf Urine Bacteria Many H (None) /hpf Urine Mucus Rare H (None) /hpf Thrombosis Risk Factor Assmnt - Choose All That Apply Each Factor Represents 1 point: Swollen legs (current) Each Risk Factor Represents 2 Points: Age 61-74 years, Patient confined to bed Thrombosis Risk Factor Assessment Total Risk Factor Score: 5 Thrombosis Risk Factor Assessment Level: High Risk Assessment and Plan Assessment: Assessment and Plan Generalized weakness with debility Hyperkalemia Acute kidney injury on chronic kidney disease Diabetes mellitus with hyperglycemia Hypertension Atrial fibrillation Heart failure, systolic, low normal EF in 2014 50-55% Morbid obesity Patient describes being unable to take care of ADLs and IADLs. Also has difficulties managing his chronic lower extremity wounds. Plans: Follow percussion. PT and OT consultation. Follow social work and case management. Potassium 5.8. Likely secondary to acute kidney injury. Given Kayexalate and ED. EKG shows no peaked T waves. Plans: Repeat BMP tomorrow morning. BUN 77, creatinine 1.84. Baseline creatinine around 1.5. Likely due to dehydration. Plans: Continue normal saline 80 mL per hour. Repeat BMP tomorrow morning. Avoid nephrotoxins. [id number] glucose 188. Plans: Insulin sliding-scale. Regular checks. Hypoglycemic precautions. Hold lisinopril. Start Levemir 20 units at bedtime, NovoLog 20 units 3 times a day. BP 109/70. Plans: Continue metoprolol. Monitor vitals, adjust medications as necessary. Stable. Plans: Continue beta adamaris. Continue Xarelto. EF 50-55% in 2014. Plans: Continue Lasix. Continue beta adamaris. Holding ALIA inhibitor due to SKYLER. BMI 40.4. Contributing to debility and lower extremity wound. Plans: Structured weight loss program. Patient admitted for generalized weakness with debility. PT and OT consulted. Social work and case management on board. Patient names his son Mikael decision-maker in the case that he can make decisions for himself. Patient would like to remain full code at this time. DVT prophylaxis: [Xarelto] Discussed with: [patient] Anticipated discharge: [1-2 days] Anticipated discharge place: [acute rehab] A total of [45] minutes was spent on the care of this complex patient more than 50% of the time was spent in counseling and care coordination.
[2019-02-27 16:47] LABS: Glucose,Whole Blood 200 mg/dL (75-99)
[2019-02-27] MEDS: INSULIN ASPART (NovoLOG) 100 UNIT/ML VIAL SQ SCH ×3 (17:09→21:15)
[2019-02-27 20:20] LABS: Glucose,Whole Blood 163 mg/dL (75-99)
[2019-02-27] MEDS: ATORVASTATIN 10 MG TAB PO SCH (21:14)
[2019-02-27] MEDS: FUROSEMIDE 40 MG TAB PO SCH (21:15)
[2019-02-28 06:47] LABS: Glucose,Whole Blood 130 mg/dL (75-99)
[2019-02-28] MEDS: INSULIN ASPART (NovoLOG) 100 UNIT/ML VIAL SQ SCH ×7 (07:45→21:29)
[2019-02-28 07:57] LABS: Glucose,Whole Blood 147 mg/dL (75-99)
[2019-02-28] MEDS: TAMSULOSIN 0.4 MG CAP.ER.24H PO SCH (08:15)
[2019-02-28] MEDS: METOPROLOL SUCCINATE (ER) 50 MG TAB.ER.24H PO SCH (08:15)
[2019-02-28] MEDS: INSULIN DETEMIR (LEVEMIR) 100 UNIT/ML SYR SQ SCH (08:16)
[2019-02-28 08:38] LABS: Calcium 8.8 mg/dL (8.4-10.2)
[2019-02-28] MEDS ORDERED: LISINOPRIL 20 MG TAB PO SCH (09:00)
[2019-02-28] MEDS: FUROSEMIDE 40 MG TAB PO SCH ×2 (10:36→21:29)
[2019-02-28] MEDS: RIVAROXABAN 15 MG TAB PO SCH (10:46)
[2019-02-28 11:32] LABS: Glucose,Whole Blood 227 mg/dL (75-99)
--- NOTE | 2019-02-28 11:56 | P.PN ---
Subjective Progress Note Date: 02/28/19 Principal diagnosis: Debility 73-year-old male with PMH of atrial fibrillation, CHF, diabetes mellitus, hyperlipidemia, hypertension, history of prostate cancer, chronic lower ext remity wounds from venous insufficiency and diabetes presents the ED for debility at the urging of his PCP. Patient reports that he lives alone. Patient states that he pulled his right groin 3 weeks ago, since then has been ambulating on his knees and has been unable to get in and out of his chair. In the ED, vital signs were stable. CBC was unremarkable. CMP showed a potassium of 5.8, BUN 77, creatinine 1.84 with glucose 188. Lactic acid was negative. Urinalysis shows large leukocyte esterase. Patient was given Kayexalate and admitted for placement. Patient was seen and examined. No acute events overnight. Patient no complaints this morning. He denies any chest pain, shortness of breath or palpitations. Objective - Vital Signs Vital signs: Vital Signs Temp 97.7 F 02/28/19 07:00 Pulse 118 H 02/28/19 07:00 Resp 16 02/28/19 07:00 BP 87/57 02/28/19 10:36 Pulse Ox 94 L 02/28/19 07:00 Intake & Output 02/27/19 02/28/19 02/28/19 18:59 06:59 18:59 Intake Total 236 1200 200 Output Total 600 Balance 236 600 200 Weight 131.542 kg Intake: Oral 236 1200 200 Output: Urine 600 Other: Voiding Method Urinal Urinal # Voids 5 - Exam General: [non toxic], [morbidly obese], [appears at stated age] Derm: [warm], [dry] Head: [atraumatic], [normocephalic], [symmetric] Eyes: [EOMI], [no lid lag], [anicteric sclera] Mouth: [no lip lesion], [mucus membranes moist] Cardiovascular: [S1S2 reg], [no murmur], [unable to palpate DP pulses bilaterally] Lungs: [decreased breath sounds bilateral], [no rhonchi, no rales] , [no accessory muscle use] Abdominal: [soft], [ nontender to palpation], [no guarding], [no appreciable organomegaly] Ext: [no gross muscle atrophy], [2+ edema], [no contractures], [venous stasis skin changes bilateral lower extremities with severe onychomycosis] Neuro: [no focal neuro deficits] Psych: [Alert], [oriented], [appropriate affect] - Labs CBC & Chem 7: 02/27/19 11:35 02/28/19 08:03 Labs: Abnormal Lab Results - Last 24 Hours (Table) 02/27/19 02/27/19 02/27/19 Range/Units 11:35 11:35 12:30 Hgb 12.8 L (13.0-17.5) gm/dL RDW 17.2 H (11.5-15.5) % Potassium 5.8 H (3.5-5.1) mmol/L Chloride (98-107) mmol/L Carbon Dioxide (22-30) mmol/L BUN 77 H (9-20) mg/dL Creatinine 1.84 H (0.66-1.25) mg/dL Glucose 188 H (74-99) mg/dL POC Glucose (mg/dL) (75-99) mg/dL Urine Protein 1+ H (Negative) Urine Blood Small H (Negative) Ur Leukocyte Esterase Large H (Negative) Urine RBC 13 H (0-5) /hpf Urine WBC >182 H (0-5) /hpf Urine WBC Clumps Many H (None) /hpf Urine Bacteria Many H (None) /hpf Urine Mucus Rare H (None) /hpf 02/27/19 02/27/19 02/28/19 Range/Units 16:46 20:10 06:45 Hgb (13.0-17.5) gm/dL RDW (11.5-15.5) % Potassium (3.5-5.1) mmol/L Chloride (98-107) mmol/L Carbon Dioxide (22-30) mmol/L BUN (9-20) mg/dL Creatinine (0.66-1.25) mg/dL Glucose (74-99) mg/dL POC Glucose (mg/dL) 200 H 163 H 130 H (75-99) mg/dL Urine Protein (Negative) Urine Blood (Negative) Ur Leukocyte Esterase (Negative) Urine RBC (0-5) /hpf Urine WBC (0-5) /hpf Urine WBC Clumps (None) /hpf Urine Bacteria (None) /hpf Urine Mucus (None) /hpf 02/28/19 02/28/19 02/28/19 Range/Units 07:55 08:03 11:30 Hgb (13.0-17.5) gm/dL RDW (11.5-15.5) % Potassium (3.5-5.1) mmol/L Chloride 96 L (98-107) mmol/L Carbon Dioxide 32 H (22-30) mmol/L BUN 73 H (9-20) mg/dL Creatinine 1.70 H (0.66-1.25) mg/dL Glucose 164 H (74-99) mg/dL POC Glucose (mg/dL) 147 H 227 H (75-99) mg/dL Urine Protein (Negative) Urine Blood (Negative) Ur Leukocyte Esterase (Negative) Urine RBC (0-5) /hpf Urine WBC (0-5) /hpf Urine WBC Clumps (None) /hpf Urine Bacteria (None) /hpf Urine Mucus (None) /hpf Microbiology - Last 24 Hours (Table) 02/27/19 12:30 Urine Culture - Preliminary Urine,Voided Assessment and Plan Assessment: Assessment and Plan Generalized weakness with debility Acute kidney injury on chronic kidney disease Diabetes mellitus with hyperglycemia Hypertension Atrial fibrillation Heart failure, systolic, low normal EF in 2014 50-55% Morbid obesity Resolved: Hyperkalemia Patient describes being unable to take care of ADLs and IADLs. Also has difficulties managing his chronic lower extremity wounds. Plans: Fall precautions. PT and OT consultation. Follow social work and case management. BUN 77-73, creatinine 1.84-1.70. Baseline creatinine around 1.5. Likely due to dehydration. Plans: Continue normal saline 80 mL per hour. Repeat BMP tomorrow morning. Avoid nephrotoxins. Eszdt-sf-uodw glucose 164. Plans: Insulin sliding-scale. Regular checks. Hypoglycemic precautions. Hold lisinopril. Start Levemir 20 units at bedtime, NovoLog 20 units 3 times a day. BP 87/57. Plans: Continue metoprolol. Monitor vitals, adjust medications as necessary. Stable. Plans: Continue beta adamaris. Continue Xarelto. EF 50-55% in 2013. Plans: Continue Lasix. Continue beta adamaris. Holding ALIA inhibitor due to SKYLER. BMI 40.4. Contributing to debility and lower extremity wound. Plans: Structured weight loss program. [Patient admitted for generalized weakness with debility. PT and OT consulted. Social work and case management on board.]
--- NOTE | 2019-02-28 14:34 | CDI ---
Documentation Clarification Form Date: 02/28/2019 2:27:59 PM From: Bernie GentileNgoPRAVEENA, CCDS Admit Date: 02/28/2019 11:30:00 AM Patient Name: Gabe Mayorga Visit Number: [id number] Discharge Date: ATTENTION: The Clinical Documentation Specialists (CDI) and [facility] Coding Staff appreciate your assistance in clarifying documentation. Please respond to the clarification below the line at the bottom and electronically sign. The CDI & [facility] Coding staff will review the response and follow-up if needed. Please note: Queries are made part of the Legal Health Record. If you have any questions, please contact the author of this message via ITS. Dr. Allen Jeter: Per the History & Physical: Systolic heart failure with previous EF 50-55% in 2013. History/Risk Factors: Generalized weakness & debility, CKD, Hypertension, Atrial fibrillation, Morbid Obesity w/BMI 40.4, Hyperkalemia. Clinical Indicators: Presented with weakness, lower extremity wounds, diagnosed with SKYLER. VS: BP 94/59*, PO 94 ra LAB: K 5.8^, BUN 77^, Cr 1.84^, GFR 36, Glucose 188^. Per H/P & progress note: repeat BMP tomorrow. Echocardiogram Results: No ECHO this admission at this time. Treatment: IV fluid bolus, po Lasix, Insulin sq, Xarelto In your professional opinion, can you please clarify the acuity and type of CHF if known? Systolic Heart Failure: o Acute o Chronic o Acute on Chronic Unable to Determine Other, please specify (Last Revision: October 2017) chronic __ MTDD
[2019-02-28] MEDS: SODIUM CHLORIDE 0.9% 1,000 ML IV SCH ×2 (15:12→17:18)
[2019-02-28 17:03] LABS: Glucose,Whole Blood 201 mg/dL (75-99)
[2019-02-28 20:29] LABS: Glucose,Whole Blood 166 mg/dL (75-99)
[2019-02-28] MEDS: ATORVASTATIN 10 MG TAB PO SCH (21:29)
[2019-02-28] MEDS: MELATONIN 3 MG TABLET PO SCH (22:21)
[2019-03-01 07:00] LABS: Glucose,Whole Blood 196 mg/dL (75-99)
[2019-03-01 09:06] LABS: Anisocytosis Slight; Hypochromasia Moderate; MCH 26.2 pg (25.0-35.0); MCHC 30.9 g/dL (31.0-37.0); MCV 84.8 fL (80.0-100.0); Platelet Count 221 k/uL (150-450); RDW 16.6 % (11.5-15.5); WBC 8.4 k/uL (3.8-10.6)
[2019-03-01] MEDS: FUROSEMIDE 40 MG TAB PO SCH (09:12)
[2019-03-01] MEDS: RIVAROXABAN 15 MG TAB PO SCH (09:13)
[2019-03-01] MEDS: INSULIN ASPART (NovoLOG) 100 UNIT/ML VIAL SQ SCH ×7 (09:13→21:22)
[2019-03-01] MEDS: TAMSULOSIN 0.4 MG CAP.ER.24H PO SCH (09:13)
[2019-03-01] MEDS: METOPROLOL SUCCINATE (ER) 50 MG TAB.ER.24H PO SCH (09:13)
[2019-03-01] MEDS: INSULIN DETEMIR (LEVEMIR) 100 UNIT/ML SYR SQ SCH (09:14)
[2019-03-01 09:15] LABS: Calcium 8.3 mg/dL (8.4-10.2); Potassium 4.7 mmol/L (3.5-5.1)
[2019-03-01] MEDS ORDERED: ACETAMINOPHEN TAB 325 MG TAB PO PRN (09:32)
[2019-03-01] MEDS: traMADol 50 MG TAB PO PRN ×2 (10:07→21:22)
--- NOTE | 2019-03-01 11:35 | P.PN ---
Subjective Progress Note Date: 03/01/19 Principal diagnosis: weakness Patient is a 73-year-old male with a past medical history of atrial fibrillation, diastolic congestive heart failure with ejection fraction 50-55%, diabetes mellitus type 2 insulin-requiring, HLD, chorinc venous insufficiency, and HTN who presented with weakness and inability to ambulate. The patient had injured his groin 3 weeks prior and has been ambulating on his knees. On arrival to the emergency department he underwent an extensive evaluation. His initial vital signs showed slight hypotension with a blood pressure of 94/59. I nitial laboratory analysis demonstrated hyperkalemia with a potassium of 5.8, he also appeared dehydrated with a BUN of 77 and creatinine of 1.84 with a baseline creatinine of approximately 1.55. He was also noted to be slightly hyperglycemic. Urinalysis was consistent with possible urinary tract infection. He was started on IV fluids and admitted for further monitoring. Patient did not have any symptoms of urinary tract infection and this is felt to be asymptomatic bacteriuria and he did not receive any antibiotics. He was continued on his home medications in addition to IV fluids. He was seen by PT and OT who recommended rehab. His hyperkalemia was initially treated with Kayexalate, his lisinopril was discontinued. His Zaroxolyn was held. His renal function improved and hyperkalemia resolved. Patient seen and examined at bedside. He reports knee pain as well as some back pain and all trend seems to be helping. He denies any chest pain, shortness breath, nausea, vomiting, or constipation. He is continuing To work with physical therapy. He is interested in a rehab on discharge his realizes that he can no longer function at home alone in his current state. Objective - Vital Signs Vital signs: Vital Signs Temp 98.1 F 03/01/19 07:00 Pulse 83 03/01/19 07:00 Resp 16 03/01/19 07:00 BP 107/70 03/01/19 07:00 Pulse Ox 96 03/01/19 07:00 Intake & Output 02/28/19 03/01/19 03/01/19 18:59 06:59 18:59 Intake Total 798 800 118 Output Total 200 Balance 798 600 118 Intake: Intake, IV Titration 480 800 Amount Sodium Chloride 0.9% 1, 480 800 000 ml @ 80 mls/hr IV . [id number] CARLOS Rx#:[id number] Oral 318 118 Output: Urine 200 Other: Voiding Method Urinal Urinal # Voids 3 - Exam General: non toxic, no distress, morbidly obese, appears older than stated age, malodorous Derm: Skin sloughing bilateral lower extremity is with purple discoloration, no warmth, warm, dry Head: atraumatic, normocephalic, symmetric Eyes: EOMI, no lid lag, anicteric sclera Mouth: no lip lesion, mucus membranes moist Cardiovascular: S1S2 reg, no murmur, positive posterior tibial pulse bilateral, Lungs: Decreased breath sounds bilateral, no rhonchi, no rales , no accessory muscle use Abdominal: soft, nontender to palpation, no guarding, no appreciable organomegaly Ext: no gross muscle atrophy, no edema, no contractures Neuro: CN II-XI grossly intact, no focal neuro deficits Psych: Alert, oriented, appropriate affect - Labs CBC & Chem 7: 03/01/19 08:51 03/01/19 08:51 Labs: Abnormal Lab Results - Last 24 Hours (Table) 02/28/19 02/28/19 02/28/19 Range/Units 11:30 17:01 20:18 Hgb (13.0-17.5) gm/dL MCHC (31.0-37.0) g/dL RDW (11.5-15.5) % Sodium (137-145) mmol/L Chloride (98-107) mmol/L BUN (9-20) mg/dL Creatinine (0.66-1.25) mg/dL Glucose (74-99) mg/dL POC Glucose (mg/dL) 227 H 201 H 166 H (75-99) mg/dL Calcium (8.4-10.2) mg/dL 03/01/19 03/01/19 03/01/19 Range/Units 06:44 08:51 08:51 Hgb 12.0 L (13.0-17.5) gm/dL MCHC 30.9 L (31.0-37.0) g/dL RDW 16.6 H (11.5-15.5) % Sodium 133 L (137-145) mmol/L Chloride 96 L (98-107) mmol/L BUN 73 H (9-20) mg/dL Creatinine 1.65 H (0.66-1.25) mg/dL Glucose 261 H (74-99) mg/dL POC Glucose (mg/dL) 196 H (75-99) mg/dL Calcium 8.3 L (8.4-10.2) mg/dL Microbiology - Last 24 Hours (Table) 02/27/19 12:30 Urine Culture - Preliminary Urine,Voided Gram Neg Bacilli 02/27/19 12:50 Blood Culture - Preliminary Blood No Growth after 24 hours Assessment and Plan Assessment: Acute kidney injury on chronic kidney disease stage III -Off of Zaroxolyn and lisinopril -Off IV fluids, continue with Lasix therapy -Avoid additional nephrotoxic agents -Repeat creatinine in a.m. Generalized weakness likely secondary to above along with morbid obesity -Outpatient structured weight loss -PT/OT -Fall precautions DM 2 with hyperglycemia - Levemir increased, fixed dose and SSI - follow BS Chronic venous stasis changes -Lac-Hydrin twice a day -Outpatient follow-up Hypertension, controlled -Continue with Lasix, metoprolol, off Zaroxlyn Atrial fibrillation, rate controlled, persistent -Continue with metoprolol and Xarelto HLD - statin therapy Hyperkalemia, resolved DVT prophylaxis: Xarelto Discussed with: patient and nursing Anticipated discharge: 2-[address]: [facility] A total of [35] minutes was spent on the care of this complex patient more than 50% of the time was spent in counseling and care coordination.
[2019-03-01 11:56] LABS: Glucose,Whole Blood 261 mg/dL (75-99)
[2019-03-01] MEDS: AMMONIUM LACTATE 12% LOTION 225 GM BTL TOPICAL SCH ×2 (16:22→21:34)
[2019-03-01 16:51] LABS: Glucose,Whole Blood 150 mg/dL (75-99)
[2019-03-01] MEDS: FUROSEMIDE 80 MG TAB PO SCH (17:01)
[2019-03-01 21:14] LABS: Glucose,Whole Blood 135 mg/dL (75-99)
[2019-03-01] MEDS: ATORVASTATIN 10 MG TAB PO SCH (21:22)
[2019-03-01] MEDS: MELATONIN 3 MG TABLET PO SCH (21:22)
[2019-03-02] MEDS: traMADol 50 MG TAB PO PRN ×2 (04:26→20:44)
[2019-03-02 07:09] LABS: Glucose,Whole Blood 132 mg/dL (75-99)
[2019-03-02] MEDS: AMMONIUM LACTATE 12% LOTION 225 GM BTL TOPICAL SCH ×2 (07:37→20:43)
[2019-03-02] MEDS: TAMSULOSIN 0.4 MG CAP.ER.24H PO SCH (07:37)
[2019-03-02] MEDS: METOPROLOL SUCCINATE (ER) 50 MG TAB.ER.24H PO SCH (07:37)
[2019-03-02] MEDS: INSULIN DETEMIR (LEVEMIR) 100 UNIT/ML SYR SQ SCH (07:37)
[2019-03-02] MEDS: RIVAROXABAN 15 MG TAB PO SCH (07:38)
[2019-03-02] MEDS: FUROSEMIDE 80 MG TAB PO SCH ×2 (07:38→15:12)
[2019-03-02] MEDS: INSULIN ASPART (NovoLOG) 100 UNIT/ML VIAL SQ SCH ×7 (07:38→20:43)
[2019-03-02 07:40] LABS: Calcium 8.6 mg/dL (8.4-10.2); Potassium 5.2 mmol/L (3.5-5.1)
[2019-03-02] MEDS ORDERED: FUROSEMIDE 80 MG TAB PO SCH (09:00)
[2019-03-02 11:44] LABS: Glucose,Whole Blood 132 mg/dL (75-99)
--- NOTE | 2019-03-02 14:59 | P.PN ---
Subjective Progress Note Date: 03/02/19 (Delayed charting patient seen on 11:30) Principal diagnosis: weakness Patient is a 73-year-old male with a past medical history of atrial fibrillation, diastolic congestive heart failure with ejection fraction 50-55%, diabetes mellitus type 2 insulin-requiring, HLD, chorinc venous insufficiency, and HTN who presented with weakness and inability to ambulate. The patient had injured his groin 3 weeks prior and has been ambulating on his knees. On arrival to the emergency department he underwent an extensive evaluation. His initial vital signs showed slight hypotension with a blood pressure of 94/59. Initial laboratory analysis demonstrated hyperkalemia with a potassium of 5.8, he also appeared dehydrated with a BUN of 77 and creatinine of 1.84 with a baseline creatinine of approximately 1.55. He was also noted to be slightly hyperglycemic. Urinalysis was consistent with possible urinary tract infection. He was started on IV fluids and admitted for further monitoring. Patient did not have any symptoms of urinary tract infection and this is felt to be asymptomatic bacteriuria and he did not receive any antibiotics. He was continued on his home medications in addition to IV fluids. He was seen by PT and OT who recommended rehab. His hyperkalemia was initially treated with Kayexalate, his lisinopril was discontinued. His Zaroxolyn was held. His renal function improved and hyperkalemia resolved. Lower extremity skin sloughing was improved with Lac-Hydrin. Patient seen and examined at bedside. Reports that breathing is good, and pain better controlled today, no nausea, vomiting, no diarrhea, no constipation. Objective - Vital Signs Vital signs: Vital Signs Temp 97.9 F 03/02/19 07:00 Pulse 91 03/02/19 07:00 Resp 16 03/02/19 07:00 BP 101/69 03/02/19 07:00 Pulse Ox 94 L 03/02/19 07:00 Intake & Output 03/01/19 03/02/19 03/02/19 18:59 06:59 18:59 Intake Total 784 300 Output Total 900 800 Balance 784 900 -500 Intake: Oral 784 300 Output: Urine 900 800 Other: Voiding Method Urinal Urinal # Voids 3 2 2 # Bowel Movements 1 - Exam General: non toxic, no distress, morbidly obese, appears older than stated age Derm: Skin sloughing bilateral lower extremity is with purple discoloration, no warmth, warm, dry Head: atraumatic, normocephalic, symmetric Eyes: EOMI, no lid lag, anicteric sclera Mouth: no lip lesion, mucus membranes moist Cardiovascular: S1S2 reg, no murmur, positive posterior tibial pulse bilateral, Lungs: Decreased breath sounds bilateral, no rhonchi, no rales , no accessory muscle use Abdominal: soft, nontender to palpation, no guarding, no appreciable organomegaly Ext: no gross muscle atrophy, no edema, no contractures Neuro: CN II-XI grossly intact, no focal neuro deficits Psych: Alert, oriented, appropriate affect - Labs CBC & Chem 7: 03/01/19 08:51 03/02/19 06:25 Labs: Abnormal Lab Results - Last 24 Hours (Table) 03/01/19 03/01/19 03/02/19 Range/Units 16:27 20:59 06:25 Sodium 135 L (137-145) mmol/L Potassium 5.2 H (3.5-5.1) mmol/L Chloride 94 L (98-107) mmol/L Carbon Dioxide 32 H (22-30) mmol/L BUN 64 H (9-20) mg/dL Creatinine 1.61 H (0.66-1.25) mg/dL Glucose 140 H (74-99) mg/dL POC Glucose (mg/dL) 150 H 135 H (75-99) mg/dL 03/02/19 03/02/19 Range/Units 06:55 11:28 Sodium (137-145) mmol/L Potassium (3.5-5.1) mmol/L Chloride (98-107) mmol/L Carbon Dioxide (22-30) mmol/L BUN (9-20) mg/dL Creatinine (0.66-1.25) mg/dL Glucose (74-99) mg/dL POC Glucose (mg/dL) 132 H 132 H (75-99) mg/dL Microbiology - Last 24 Hours (Table) 02/27/19 12:30 Urine Culture - Final Urine,Voided Escherichia coli 02/27/19 12:50 Blood Culture - Preliminary Blood No Growth after 48 hours Assessment and Plan Assessment: Acute kidney injury on chronic kidney disease stage III - Off of Zaroxolyn - resume lisinopril - Off IV fluids, continue with Lasix therapy - Avoid additional nephrotoxic agents - Repeat creatinine in a.m. Generalized weakness likely secondary to above along with morbid obesity -Outpatient structured weight loss -PT/OT -Fall precautions DM 2 with hyperglycemia - Levemir, fixed dose and SSI - follow BS - repeat A1C Chronic venous stasis changes -Lac-Hydrin twice a day -Outpatient follow-up Hypertension, controlled -Continue with Lasix, metoprolol, off Zaroxlyn Atrial fibrillation, rate controlled, persistent -Continue with metoprolol and Xarelto HLD - statin therapy Hyperkalemia, resolved DVT prophylaxis: Xarelto Discussed with: patient and nursing Anticipated discharge: in AM Anticipated discharge place: [facility] A total of 35 minutes was spent on the care of this complex patient more than 50% of the time was spent in counseling and care coordination.
[2019-03-02] MEDS: LISINOPRIL 20 MG TAB PO SCH (15:12)
[2019-03-02 16:57] LABS: Glucose,Whole Blood 120 mg/dL (75-99)
[2019-03-02 20:07] LABS: Glucose,Whole Blood 134 mg/dL (75-99)
[2019-03-02] MEDS: ATORVASTATIN 10 MG TAB PO SCH (20:43)
[2019-03-02] MEDS: MELATONIN 3 MG TABLET PO SCH (20:44)
[2019-03-03 02:45] VITALS: RESP 16
[2019-03-03 07:11] LABS: Glucose,Whole Blood 124 mg/dL (75-99)
[2019-03-03 07:48] VITALS: BP 115/74; PULSE 91; TEMP 98
[2019-03-03] MEDS: METOPROLOL SUCCINATE (ER) 50 MG TAB.ER.24H PO SCH (07:53)
[2019-03-03] MEDS: LISINOPRIL 20 MG TAB PO SCH (07:53)
[2019-03-03] MEDS: TAMSULOSIN 0.4 MG CAP.ER.24H PO SCH (07:53)
[2019-03-03] MEDS: RIVAROXABAN 15 MG TAB PO SCH (07:54)
[2019-03-03] MEDS: INSULIN DETEMIR (LEVEMIR) 100 UNIT/ML SYR SQ SCH (07:54)
[2019-03-03] MEDS: FUROSEMIDE 80 MG TAB PO SCH (07:54)
[2019-03-03] MEDS: INSULIN ASPART (NovoLOG) 100 UNIT/ML VIAL SQ SCH ×4 (07:55→12:37)
[2019-03-03] MEDS: AMMONIUM LACTATE 12% LOTION 225 GM BTL TOPICAL SCH (07:56)
[2019-03-03 09:05] LABS: Anisocytosis Slight; HCT 36.2 % (39.0-53.0); HGB 11.6 gm/dL (13.0-17.5); Hypochromasia Slight; MCH 26.8 pg (25.0-35.0); MCV 83.8 fL (80.0-100.0); Platelet Count 230 k/uL (150-450); RBC 4.32 m/uL (4.30-5.90); RDW 16.8 % (11.5-15.5); WBC 8.9 k/uL (3.8-10.6)
[2019-03-03 09:25] LABS: Calcium 7.9 mg/dL (8.4-10.2); Magnesium 2.1 mg/dL (1.6-2.3); Potassium 4.4 mmol/L (3.5-5.1)
--- NOTE | 2019-03-03 11:35 | P.DS ---
Providers Date of admission: 02/28/19 11:30 Expected date of discharge: 03/03/19 Attending physician: Brittney Melton MD Primary care physician: Danny Watson [facility] Course: Discharge Diagnosis: Acute kidney injury on chronic kidney disease stage III Generalized weakness Diabetes mellitus type 2 with hyperglycemia Chronic venous stasis changes Hypertension A. fib Dyslipidemia Hyperkalemia Hospital Course: Patient is a 73-year-old male with a past medical history of atrial fibrillation, diastolic congestive heart failure with ejection fraction 50-55%, diabetes mellitus type 2 insulin-requiring, HLD, chorinc venous insufficiency, and HTN who presented with weakness and inability to ambulate. The patient had injured his groin 3 weeks prior and has been ambulating on his knees. On arrival to the emergency department he underwent an extensive evaluation. His initial vital signs showed slight hypotension with a blood pressure of 94/59. Initial laboratory analysis demonstrated hyperkalemia with a potassium of 5.8, he also appeared dehydrated with a BUN of 77 and creatinine of 1.84 with a baseline creatinine of approximately 1.55. He was also noted to be slightly hyperglycemic. Urinalysis was consistent with possible urinary tract infection. He was started on IV fluids and admitted for further monitoring. Patient did not have any symptoms of urinary tract infection and this is felt to be asymptomatic bacteriuria and he did not receive any antibiotics. He was continued on his home medications in addition to IV fluids. He was seen by PT and OT who recommended rehab. His hyperkalemia was initially treated with Kayexalate, his lisinopril was discontinued. His Zaroxolyn was held. His renal function improved and hyperkalemia resolved. Lower extremity skin sloughing was improved with Lac-Hydrin. 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 He was determined stable for discharge to rehab. He'll need close monitoring to ensure that he does not become fluid overloaded as his Zaroxolyn is still on hold. I recommended a repeat basic metabolic profile in 3-4 days. He also would benefit from a podiatry consultation secondary to onychomycosis he is as well as chronic venous insufficiency. He was discharged to [facility] in stable condition. Patient seen and examined at bedside. No chest pain, SOB, nausea, or vomiting, no diarrhea. Vital signs reviewed and stable. General: non toxic, no distress, appears at stated age Derm: skin sloughing with bluish purple discoloration, warm, dry Head: atraumatic, normocephalic, symmetric Eyes: EOMI, no lid lag, anicteric sclera Mouth: no lip lesion, mucus membranes moist Cardiovascular: S1S2 reg, no murmur, positive posterior tibial pulse bilateral, Lungs: CTA bilateral, no rhonchi, no rales , no accessory muscle use Abdominal: soft, nontender to palpation, no guarding, no appreciable organomegaly Ext: no gross muscle atrophy, no edema, no contractures Neuro: CN II-XI grossly intact, no focal neuro deficits Psych: Alert, oriented, appropriate affect A total of 45 minutes of time were spent preparing this complex discharge summary . Patient Condition at Discharge: Stable Plan - Discharge Summary New Discharge Prescriptions: New Ammonium Lactate Lotion [Lac-Hydrin 12% Lotion] 1 applic TOPICAL BID applic Insulin Detemir (Levemir) [Levemir] 26 unit SQ DAILY@0700 syr traMADol HCl [Ultram] 50 mg PO TID PRN #9 tab PRN Reason: Breakthrough Pain Continue Furosemide [Lasix] 80 mg PO BID Lovastatin [Mevacor] 10 mg PO HS Lisinopril [Zestril] 20 mg PO DAILY Tamsulosin HCl [Flomax] 0.4 mg PO DAILY Rivaroxaban [Xarelto] 15 mg PO DAILY Metoprolol Succinate [Toprol Xl] 50 mg PO DAILY Insulin Aspart [NovoLOG Flexpen] 20 units SQ AC-TID Discontinued Metolazone [Zaroxolyn] 2.5 mg PO DAILY Insulin Glargine,Hum.rec.anlog [Basaglar Kwikpen U-100] 20 unit SQ DAILY Discharge Medication List Furosemide [Lasix] 80 mg PO BID 05/06/14 [History] Lovastatin [Mevacor] 10 mg PO HS 05/29/15 [History] Lisinopril [Zestril] 20 mg PO DAILY 11/03/16 [History] Insulin Aspart [NovoLOG Flexpen] 20 units SQ AC-TID 02/27/19 [History] Metoprolol Succinate [Toprol Xl] 50 mg PO DAILY 02/27/19 [History] Rivaroxaban [Xarelto] 15 mg PO DAILY 02/27/19 [History] Tamsulosin HCl [Flomax] 0.4 mg PO DAILY 02/27/19 [History] Ammonium Lactate Lotion [Lac-Hydrin 12% Lotion] 1 applic TOPICAL BID applic 03/02/19 [Rx] Insulin Detemir (Levemir) [Levemir] 26 unit SQ DAILY@0700 syr 03/02/19 [Rx] traMADol HCl [Ultram] 50 mg PO TID PRN #9 tab 03/02/19 [Rx] Follow up Appointment(s)/Referral(s): Danny Watson MD [Primary Care Provider] - 1-2 days [facility], [NON-STAFF] - As Needed Activity/Diet/Wound Care/Special Instructions: Diet: Heart healthy, 2 L fluid restriction, carb consistent Activity: As tolerated, fall precautions Check blood sugars with meals and at night Likely would benefit from podiatry consult Repeat basic metabolic profile in 3-5 days diagnosis acute kidney injury Metolazone has been stopped as patient was dehydrated when he came in, may need to be restarted over the next 1-2 weeks if oral intake increases. Discharge Disposition: TRANSFER TO SNF/ECF
[2019-03-03 11:56] LABS: Glucose,Whole Blood 136 mg/dL (75-99)
== END 2019-03-03 14:03 | DRG 683 ==
LOC: EC 10:23 → 4SSUR 13:07 → OBSVTOIN 02-28 11:30
PROVIDERS: ADMIT Internal Medicine; ATTEND Internal Medicine
DX: N17.9 Acute kidney failure, unspecified (principal); I13.0 Hypertensive heart and chronic kidney disease with heart failure and stage 1 through stage 4 chronic kidney disease, or unspecified chronic kidney disease; Z68.41 Body mass index [BMI] 40.0-44.9, adult; I50.42 Chronic combined systolic (congestive) and diastolic (congestive) heart failure; I87.2 Venous insufficiency (chronic) (peripheral); E86.0 Dehydration; E11.42 Type 2 diabetes mellitus with diabetic polyneuropathy; E11.65 Type 2 diabetes mellitus with hyperglycemia; E11.22 Type 2 diabetes mellitus with diabetic chronic kidney disease; G62.9 Polyneuropathy, unspecified; I48.91 Unspecified atrial fibrillation; N18.3 Chronic kidney disease, stage 3 (moderate); E78.5 Hyperlipidemia, unspecified; E87.5 Hyperkalemia; E66.01 Morbid (severe) obesity due to excess calories; Z91.14 Patient's other noncompliance with medication regimen; Z90.79 Acquired absence of other genital organ(s); Z79.899 Other long term (current) drug therapy; Z79.4 Long term (current) use of insulin; Z79.01 Long term (current) use of anticoagulants; Z87.891 Personal history of nicotine dependence; Z82.3 Family history of stroke; Z86.14 Personal history of Methicillin resistant Staphylococcus aureus infection; Z82.49 Family history of ischemic heart disease and other diseases of the circulatory system; Z85.46 Personal history of malignant neoplasm of prostate; Z99.3 Dependence on wheelchair; Z88.1 Allergy status to other antibiotic agents; Z88.0 Allergy status to penicillin; Z98.890 Other specified postprocedural states
CPT/HCPCS: 36415; 80048; 81001; 83036; 83605; 83735; 85025; 85027; 87040; 87077; 87086; 87186; 90471; 90715; 93005; 99284